=== PATIENT | male | born 1960 | race African-American/Black ===

== ENCOUNTER 2016-10-16 03:09 | Emergency (ER) | payer MEDICAID ==
[~2016-10-16] VITALS: Ht 188 cm; Wt 158.8 kg
[~2016-10-16 03:09] MED LIST: ALLO300T2; ALLO300T2 PO; ENAL-3; ENAL2.5T PO; FLUO-125; FLUO-125 PO; GABA300C8; GABA300C8 PO; INDO50CA82; INDO50CA82 PO; RANI-226; RANI150C11 PO; SIMV-8; SIMV-8 PO
[2016-10-16 03:33] VITALS: BP 150/99
[2016-10-16] MEDS ORDERED: methylPREDNISolone SOD SUCC 125 MG/2 ML VL IM ONE (04:45)
== END 2016-10-16 05:31 | disposition home or self-care (01) ==
LOC: ER 03:13
DX: M10.9 Gout, unspecified (principal); E11.9 Type 2 diabetes mellitus without complications; K21.9 Gastro-esophageal reflux disease without esophagitis; E78.5 Hyperlipidemia, unspecified; I10 Essential (primary) hypertension; Z79.899 Other long term (current) drug therapy
CPT/HCPCS: 82962; 96372; 99283; J2930

== ENCOUNTER 2017-01-14 17:37 | Emergency (ER) | payer MEDICAID ==
[~2017-01-14] VITALS: Ht 190.5 cm; Wt 158.8 kg
[~2017-01-14 17:37] MED LIST changes: +GABA-497; +GABA-497 PO; -GABA300C8; -GABA300C8 PO
[2017-01-14 20:55] LABS: Basophils # (auto) 0.1 uL; Basophils % (auto) 0.5 % (0.0-2.0); CONDITION Y; Eosinophils # (auto) 0.2 uL; Eosinophils % (auto) 2.2 % (0.0-7.0); Hematocrit 41.1 % (41.0-53.0); Hemoglobin 13.6 g/dL (13.5-17.5); Lymphocytes # (auto) 1.8 uL; Lymphocytes % (auto) 16.4 % (10.0-50.0); Mean Corpuscular Hemoglobin 29.1 pg (28.0-32.0); Mean Corpuscular Volume 88.1 fL (80.0-100.0); Mean Platelet Volume 10.8 fL (7.4-10.4); Monocytes # (auto) 1.1 uL; Monocytes % (auto) 10.2 % (0.0-12.0); Neutrophils # (auto) 7.8 uL; Neutrophils % (auto) 70.7 % (37.0-80.0); Platelet Count (auto) 203 10^3/uL (140-450); Red Cell Distribution Width 14.9 % (11.6-16.0)
[2017-01-14 21:03] LABS: INR 0.95 (0.9-1.15); Partial Thromboplastin Time 26.6 sec (22.64-33.71); Prothrombin Time 10.4 sec (9.37-12.3)
[2017-01-14 21:06] LABS: Albumin 3.2 g/dL (3.4-5.0); Alkaline Phosphatase 102 U/L (45-117); Anion Gap 6 (5-15); Aspartate Aminotransferase 36 U/L (15-37); BUN/Creatinine Ratio 8.8; Bilirubin, Total 0.2 mg/dL (0.2-1.0); Blood Urea Nitrogen 10 mg/dL (7-18); Calcium 8.5 mg/dL (8.5-10.1); Carbon Dioxide 28 mmol/L (21-32); Chloride 106 mmol/L (98-107); GFR African American 86 mL/min; GFR Non-African American 71 mL/min; Glucose 94 mg/dL (74-106); Sodium 140 mmol/L (136-145); Total Protein 7.1 g/dL (6.4-8.2)
[2017-01-14] MEDS ORDERED: IOHEXOL 300 MG/ML 100ML BOTTLE IJ ONE (21:13)
[2017-01-14 22:13] LABS: Urine RBC None Seen /hpf (0 - 3)
[2017-01-14 22:19] LABS: B-Type Natriuretic Peptide 3.1 pg/mL (0-100)
[2017-01-14 22:22] LABS: Temperature: 22.2 C (20.0-25.0)
[2017-01-14 22:24] LABS: Urine Bilirubin Negative (Negative); Urine Blood Negative /uL (Negative); Urine Color Yellow (Yellow); Urine Glucose Normal (Normal); Urine Ketone Negative (Negative); Urine Nitrite Negative (Negative); Urine Squamous Epithelial Cell FEW /hpf (<5)
[2017-01-15] MEDS ORDERED: KETOROLAC TROMETH 60MG/2ML VIAL IM ONE
[2017-01-15] MEDS ORDERED: KETOROLAC TROMETH 30 MG/ML 1ML VIAL IV ONE (00:15)
[2017-01-15 00:29] VITALS: BP 142/95
== END 2017-01-15 00:33 | disposition home or self-care (01) ==
LOC: ER 17:40
DX: R60.0 Localized edema (principal); E11.9 Type 2 diabetes mellitus without complications; I10 Essential (primary) hypertension; K21.9 Gastro-esophageal reflux disease without esophagitis; M10.9 Gout, unspecified; E78.5 Hyperlipidemia, unspecified; Z79.899 Other long term (current) drug therapy
CPT/HCPCS: 36415; 71010; 74178; 80053; 81001; 82962; 83880; 84484; 85025; 85610; 85730; 93005; 96374; 99285; J1885; Q9967

== ENCOUNTER 2017-05-13 04:36 | Emergency (ER) | payer MEDICAID ==
[~2017-05-13] VITALS: Ht 190.5 cm; Wt 158.8 kg
[2017-05-13 05:10] VITALS: BP 146/89
== END 2017-05-13 06:21 | disposition home or self-care (01) ==
LOC: ER 04:42
DX: R05 Cough (principal); R50.9 Fever, unspecified; M10.9 Gout, unspecified; I10 Essential (primary) hypertension; K21.9 Gastro-esophageal reflux disease without esophagitis; E11.9 Type 2 diabetes mellitus without complications; E78.5 Hyperlipidemia, unspecified; Z86.718 Personal history of other venous thrombosis and embolism; Z86.73 Personal history of transient ischemic attack (TIA), and cerebral infarction without residual deficits
CPT/HCPCS: 71020; 82962

== ENCOUNTER 2017-06-13 13:09 | Emergency (ER) | payer MEDICAID ==
[~2017-06-13] VITALS: Ht 190.5 cm; Wt 158.8 kg
[2017-06-13 17:51] LABS: Basophils # (auto) 0.1 uL; Basophils % (auto) 0.9 % (0.0-2.0); Eosinophils # (auto) 0.3 uL; Eosinophils % (auto) 2.9 % (0.0-7.0); Hematocrit 39.9 % (41.0-53.0); Hemoglobin 13.1 g/dL (13.5-17.5); Lymphocytes # (auto) 1.3 uL; Lymphocytes % (auto) 13.3 % (10.0-50.0); Mean Corpuscular Hemoglobin 28.6 pg (28.0-32.0); Mean Corpuscular Hgb Conc. 32.9 g/dL (32.0-36.0); Monocytes # (auto) 0.8 uL; Monocytes % (auto) 8.3 % (0.0-12.0); Neutrophils # (auto) 7.6 uL; Neutrophils % (auto) 74.6 % (37.0-80.0); Nucleated Red Blood Cells % 0.3 %; Platelet Count (auto) 159 10^3/uL (140-450); Red Blood Cells 4.59 10^6/uL (4.5-5.90); Red Cell Distribution Width 15.5 % (11.8-14.3); White Blood Cell 10.2 10^3/uL (4.4-10.8)
[2017-06-13] MEDS ORDERED: KETOROLAC TROMETH 60MG/2ML VIAL IM ONE (18:00)
[2017-06-13 18:06] LABS: Albumin 3.2 g/dL (3.4-5.0); BUN/Creatinine Ratio 9.9; Bilirubin, Total 0.2 mg/dL (0.2-1.0); Calcium 8.4 mg/dL (8.5-10.1); Potassium 3.8 mmol/L (3.5-5.1); Total Protein 7.2 g/dL (6.4-8.2)
[2017-06-13 20:00] VITALS: BP 154/82
== END 2017-06-13 20:18 | disposition home or self-care (01) ==
LOC: ER 13:09
DX: M10.022 Idiopathic gout, left elbow (principal); E11.9 Type 2 diabetes mellitus without complications; K21.9 Gastro-esophageal reflux disease without esophagitis; E78.5 Hyperlipidemia, unspecified; I10 Essential (primary) hypertension; Z79.899 Other long term (current) drug therapy; Z86.73 Personal history of transient ischemic attack (TIA), and cerebral infarction without residual deficits
CPT/HCPCS: 36415; 80053; 83880; 84550; 85025; 94761; 96372; 99284; J1885

== ENCOUNTER 2018-07-20 10:38 | Emergency (ER) | payer MEDICAID ==
[~2018-07-20] VITALS: Ht 188 cm; Wt 167.8 kg
[~2018-07-20 10:38] MED LIST changes: -GABA-497; -GABA-497 PO; +GABA300C10; +GABA300C10 PO
[2018-07-20] MEDS ORDERED: KETOROLAC TROMETH 60MG/2ML VIAL IM ONE (13:30)
[2018-07-20 14:54] VITALS: BP 144/95
== END 2018-07-20 14:20 | disposition home or self-care (01) ==
LOC: ER 10:38
DX: M10.9 Gout, unspecified (principal); E11.9 Type 2 diabetes mellitus without complications; K21.9 Gastro-esophageal reflux disease without esophagitis; E78.5 Hyperlipidemia, unspecified; I10 Essential (primary) hypertension; Z86.73 Personal history of transient ischemic attack (TIA), and cerebral infarction without residual deficits
CPT/HCPCS: 36415; 73630; 84550; 96372; 99284; J1885

== ENCOUNTER 2019-12-26 12:00 | Emergency (ER) | payer MEDICAID ==
[~2019-12-26] VITALS: Ht 190.5 cm; Wt 163.3 kg
[~2019-12-26 12:00] MED LIST changes: -ENAL-3; +ENAL10TA2
[2019-12-26 15:51] VITALS: BP 156/106
[2019-12-26] MEDS ORDERED: KETOROLAC TROMETH 60MG/2ML VIAL IM ONE (17:00)
== END 2019-12-26 17:15 | disposition home or self-care (01) ==
LOC: ER 12:00
DX: M10.9 Gout, unspecified (principal); K21.9 Gastro-esophageal reflux disease without esophagitis; E11.9 Type 2 diabetes mellitus without complications; E78.5 Hyperlipidemia, unspecified; I10 Essential (primary) hypertension; Z86.73 Personal history of transient ischemic attack (TIA), and cerebral infarction without residual deficits; Z79.899 Other long term (current) drug therapy
CPT/HCPCS: 76870; 96372; 99284; J1885

== ENCOUNTER 2021-01-23 08:41 | Emergency (ER) | payer MEDICAID ==
[~2021-01-23] VITALS: Ht 190.5 cm; Wt 163.3 kg
[~2021-01-23 08:41] MED LIST changes: +ENAL10TA13; -ENAL10TA2; -ENAL2.5T PO; +ENAL2.5T7 PO
[2021-01-23 09:17] VITALS: BP 155/81
[2021-01-23] MEDS ORDERED: KETOROLAC TROMETH 60MG/2ML VIAL IM ONE (09:45)
[2021-01-23] MEDS ORDERED: methylPREDNISolone SOD SUCC 125 MG/2 ML VL IM ONE (09:45)
== END 2021-01-23 10:00 | disposition home or self-care (01) ==
LOC: ER 08:41
DX: M10.9 Gout, unspecified (principal); E66.01 Morbid (severe) obesity due to excess calories; Z68.42 Body mass index [BMI] 45.0-49.9, adult; I10 Essential (primary) hypertension; E11.9 Type 2 diabetes mellitus without complications; K21.9 Gastro-esophageal reflux disease without esophagitis; E78.5 Hyperlipidemia, unspecified; Z86.73 Personal history of transient ischemic attack (TIA), and cerebral infarction without residual deficits; Z79.899 Other long term (current) drug therapy
CPT/HCPCS: 93005; 96372; 99284; J1885; J2930

== ENCOUNTER 2021-08-02 20:09 | Emergency (ER) | payer MEDICAID ==
[~2021-08-02] VITALS: Ht 190.5 cm; Wt 163.3 kg
[2021-08-02 20:09] VITALS: BP 155/96
[2021-08-02] MEDS ORDERED: KETOROLAC TROMETH 30 MG/ML 1ML VIAL IM ONE (21:45)
== END 2021-08-02 22:17 | disposition home or self-care (01) ==
LOC: ER 20:11
DX: M10.9 Gout, unspecified (principal); E11.9 Type 2 diabetes mellitus without complications; K21.9 Gastro-esophageal reflux disease without esophagitis; E78.5 Hyperlipidemia, unspecified; I10 Essential (primary) hypertension; Z86.73 Personal history of transient ischemic attack (TIA), and cerebral infarction without residual deficits
CPT/HCPCS: 73562; 73630; 96372; 99284; J1885

== ENCOUNTER 2021-12-08 11:25 | Emergency (ER) | payer MEDICAID ==
[~2021-12-08] VITALS: Ht 190.5 cm; Wt 167.8 kg
[2021-12-08] MEDS ORDERED: KETOROLAC TROMETH 60MG/2ML VIAL IM ONE (12:15)
[2021-12-08] MEDS ORDERED: ALL100T PO (12:49)
[2021-12-08] MEDS ORDERED: INDO25CA17 PO (12:49)
[2021-12-08 13:20] VITALS: BP 135/64
== END 2021-12-08 13:33 | disposition home or self-care (01) ==
LOC: ER 11:25
DX: M10.9 Gout, unspecified (principal); I10 Essential (primary) hypertension; E11.9 Type 2 diabetes mellitus without complications; E78.5 Hyperlipidemia, unspecified; K21.9 Gastro-esophageal reflux disease without esophagitis; Z86.73 Personal history of transient ischemic attack (TIA), and cerebral infarction without residual deficits; Z79.899 Other long term (current) drug therapy
CPT/HCPCS: 36415; 84550; 96372; 99283; J1885

== ENCOUNTER 2022-02-05 12:22 | Emergency (ER) | payer MEDICAID ==
[~2022-02-05] VITALS: Ht 190.5 cm; Wt 163.5 kg
[~2022-02-05 12:22] MED LIST changes: +ALL100T PO; +INDO25CA17 PO
[2022-02-05 12:50] VITALS: BP 150/96
[2022-02-05] MEDS ORDERED: methylPREDNISolone SOD SUCC 125 MG/2 ML VL IM ONE (13:00)
[2022-02-05] MEDS ORDERED: KETOROLAC TROMETH 60MG/2ML VIAL IM ONE (13:00)
[2022-02-05] MEDS ORDERED: INDO50CA82 PO (13:05)
[2022-02-05] MEDS ORDERED: COLC1CAP PO ×2 (13:05→13:08)
[2022-02-05] MEDS ORDERED: METH4PAK PO (13:08)
== END 2022-02-05 13:24 | disposition home or self-care (01) ==
LOC: ER 12:22
DX: M10.9 Gout, unspecified (principal); E66.01 Morbid (severe) obesity due to excess calories; I10 Essential (primary) hypertension; E11.9 Type 2 diabetes mellitus without complications; E78.5 Hyperlipidemia, unspecified; K21.9 Gastro-esophageal reflux disease without esophagitis; Z68.42 Body mass index [BMI] 45.0-49.9, adult; Z86.73 Personal history of transient ischemic attack (TIA), and cerebral infarction without residual deficits; Z79.899 Other long term (current) drug therapy
CPT/HCPCS: 93005; 96372; 99284; J1885; J2930

== ENCOUNTER 2022-02-15 08:14 | Emergency (ER) | payer MEDICAID ==
[~2022-02-15] VITALS: Ht 190.5 cm; Wt 168.2 kg
[~2022-02-15 08:14] MED LIST changes: +COLC1CAP PO; +METH4PAK PO
[2022-02-15 09:05] VITALS: BP 136/76
[2022-02-15] MEDS ORDERED: ACET-1158 PO (10:03)
[2022-02-15] MEDS ORDERED: AMOX-277 PO (10:03)
== END 2022-02-15 10:34 | disposition home or self-care (01) ==
LOC: ER 08:14
DX: S91.202A Unspecified open wound of left great toe with damage to nail, initial encounter (principal); K04.7 Periapical abscess without sinus; I10 Essential (primary) hypertension; E78.5 Hyperlipidemia, unspecified; E11.9 Type 2 diabetes mellitus without complications; Z86.73 Personal history of transient ischemic attack (TIA), and cerebral infarction without residual deficits; Z79.899 Other long term (current) drug therapy; X58.XXXA Exposure to other specified factors, initial encounter; Y93.89 Activity, other specified; Y92.89 Other specified places as the place of occurrence of the external cause; Y99.8 Other external cause status

== ENCOUNTER 2022-02-25 03:00 | Emergency (ER) | payer MEDICAID ==
[~2022-02-25] VITALS: Ht 190.5 cm; Wt 168.2 kg
[~2022-02-25 03:00] MED LIST changes: +ACET-1158 PO; +AMOX-277 PO
[2022-02-25] MEDS ORDERED: ACET-1080 PO (07:03)
[2022-02-25] MEDS ORDERED: CLIN300C8 PO (07:03)
[2022-02-25] MEDS ORDERED: KETOROLAC TROMETH 60MG/2ML VIAL IM ONE (07:15)
[2022-02-25 07:49] VITALS: BP 140/92
== END 2022-02-25 07:22 | disposition home or self-care (01) ==
LOC: ER 03:02
DX: K04.7 Periapical abscess without sinus (principal); E11.9 Type 2 diabetes mellitus without complications; K21.9 Gastro-esophageal reflux disease without esophagitis; E78.5 Hyperlipidemia, unspecified; I10 Essential (primary) hypertension; Z86.73 Personal history of transient ischemic attack (TIA), and cerebral infarction without residual deficits
CPT/HCPCS: 96372; 99283; J1885

== ENCOUNTER 2022-04-21 00:39 | Emergency (ER) | payer MEDICAID ==
[~2022-04-21] VITALS: Ht 190.5 cm; Wt 159.0 kg
[~2022-04-21 00:39] MED LIST changes: +ACET-1080 PO; +CLIN300C8 PO
[2022-04-21] MEDS ORDERED: INDO50CA82 PO (02:11)
[2022-04-21] MEDS ORDERED: PRED30TA4 PO (02:11)
[2022-04-21] MEDS ORDERED: KETOROLAC TROMETH 60MG/2ML VIAL IM ONE (02:15)
[2022-04-21] MEDS ORDERED: methylPREDNISolone SOD SUCC 125 MG/2 ML VL IM ONE (02:15)
[2022-04-21] MEDS ORDERED: methylPREDNISolone SOD SUCC 125 MG/2 ML VL ONE (02:17)
[2022-04-21 02:28] VITALS: BP 162/79
== END 2022-04-21 02:29 | disposition home or self-care (01) ==
LOC: ER 00:39
DX: M10.9 Gout, unspecified (principal); I10 Essential (primary) hypertension; E11.9 Type 2 diabetes mellitus without complications; E78.5 Hyperlipidemia, unspecified; K21.9 Gastro-esophageal reflux disease without esophagitis; Z86.73 Personal history of transient ischemic attack (TIA), and cerebral infarction without residual deficits; Z79.899 Other long term (current) drug therapy; Z79.2 Long term (current) use of antibiotics
CPT/HCPCS: 96372; 99284; J1885; J2930

== ENCOUNTER 2022-05-22 14:06 | Emergency (ER) | payer MEDICAID ==
[~2022-05-22] VITALS: Ht 190.5 cm; Wt 163.5 kg
[~2022-05-22 14:06] MED LIST changes: +PRED30TA4 PO
[2022-05-22 14:20] VITALS: BP 143/86
[2022-05-22] MEDS ORDERED: methylPREDNISolone SOD SUCC 125 MG/2 ML VL IM ONE (15:45)
[2022-05-22] MEDS ORDERED: KETOROLAC TROMETH 60MG/2ML VIAL IM ONE (15:45)
[2022-05-22] MEDS ORDERED: PRED20TA2 PO (16:11)
== END 2022-05-22 16:18 | disposition home or self-care (01) ==
LOC: ER 14:25
DX: M10.9 Gout, unspecified (principal); E11.9 Type 2 diabetes mellitus without complications; K21.9 Gastro-esophageal reflux disease without esophagitis; E78.5 Hyperlipidemia, unspecified; I10 Essential (primary) hypertension; Z86.73 Personal history of transient ischemic attack (TIA), and cerebral infarction without residual deficits
CPT/HCPCS: 96372; 99284; J1885; J2930

== ENCOUNTER 2023-02-27 22:04 | Emergency (ER) | payer SELFPAY ==
[~2023-02-27] VITALS: Ht 190.5 cm; Wt 170.0 kg
[~2023-02-27 22:04] MED LIST changes: -ACET-1158 PO; +ACET500T58 PO; -AMOX-277 PO; +AMOX875T4 PO; +CLIN300C70 PO; -CLIN300C8 PO; -ENAL10TA13; +ENAL1TAB42 PO; +ENAL1TAB47; -ENAL2.5T7 PO; +GABA-1250; +GABA-1250 PO; -GABA300C10; -GABA300C10 PO; +INDO-34 PO; -INDO25CA17 PO; +PRED20TA2 PO; -SIMV-8; -SIMV-8 PO; +SIMV20TA20; +SIMV20TA20 PO
[2023-02-28] MEDS ORDERED: MORPHINE SULFATE INJ 2 MG/ml SYRG IM ONE ×2 (01:00→03:00)
[2023-02-28] MEDS ORDERED: DexAMETHasone SOD PHOS 10MG/1ML VIAL INJ IM ONE (01:15)
[2023-02-28] MEDS ORDERED: HYDR-4902 PO (01:19)
[2023-02-28] MEDS ORDERED: INDO50CA82 PO (01:19)
[2023-02-28] MEDS ORDERED: FAMO20TA10 PO (01:26)
[2023-02-28 03:38] VITALS: BP 138/86; PULSE 62; RESP 18
[2023-02-28 04:00] VITALS: O2SAT 96
== END 2023-02-28 05:01 | disposition home or self-care (01) ==
LOC: ER 22:09
DX: M10.9 Gout, unspecified (principal); M17.12 Unilateral primary osteoarthritis, left knee; E11.9 Type 2 diabetes mellitus without complications; K21.9 Gastro-esophageal reflux disease without esophagitis; E78.5 Hyperlipidemia, unspecified; I10 Essential (primary) hypertension; Z76.0 Encounter for issue of repeat prescription; Z86.73 Personal history of transient ischemic attack (TIA), and cerebral infarction without residual deficits; Z79.899 Other long term (current) drug therapy
CPT/HCPCS: 36415; 73080; 73562; 82962; 84550; 96372; 99284; J1100; J2270

== ENCOUNTER 2023-05-02 18:48 | Emergency (ER) | payer MEDICAID ==
[~2023-05-02] VITALS: Ht 190.5 cm; Wt 169.0 kg
[~2023-05-02 18:48] MED LIST changes: +FAMO20TA10 PO; +HYDR-4902 PO
[2023-05-02] MEDS ORDERED: KETOROLAC TROMETH 30 MG/ML 1ML VIAL IM ONE (23:45)
[2023-05-02] MEDS ORDERED: DexAMETHasone SOD PHOS 10MG/1ML VIAL INJ IM ONE (23:45)
[2023-05-03 00:35] VITALS: BP 156/81; PULSE 65; RESP 18
[2023-05-03 00:51] VITALS: O2SAT 98
== END 2023-05-03 01:00 | disposition home or self-care (01) ==
LOC: ER 18:48
DX: M10.071 Idiopathic gout, right ankle and foot (principal); M10.021 Idiopathic gout, right elbow; M10.062 Idiopathic gout, left knee; I10 Essential (primary) hypertension; E11.9 Type 2 diabetes mellitus without complications; K21.9 Gastro-esophageal reflux disease without esophagitis; E78.5 Hyperlipidemia, unspecified; Z86.73 Personal history of transient ischemic attack (TIA), and cerebral infarction without residual deficits; Z79.899 Other long term (current) drug therapy
CPT/HCPCS: 96372; 99284; J1100; J1885

== ENCOUNTER → 2023-06-27 | Outpatient (CLI) | payer MEDICAID ==
[2023-06-27 13:00] LABS: Albumin 4.3 g/dL (3.2-4.8); Bilirubin, Direct 0.2 mg/dL (<0.3); Bilirubin, Total 0.6 mg/dL (0.2-1.0); Total Protein 6.8 g/dL (5.7-8.2)
== END | disposition home or self-care (01) ==
LOC: LAB 11:50
PROVIDERS: ATTEND Podiatrist
DX: B35.1 Tinea unguium (principal)
CPT/HCPCS: 36415; 80076

== ENCOUNTER 2023-10-19 10:36 | Emergency (ER) | payer MEDICAID ==
[~2023-10-19] VITALS: Ht 190.5 cm; Wt 155.9 kg
[~2023-10-19 10:36] MED LIST changes: +CLIN1CAP70 PO; -CLIN300C70 PO
[2023-10-19] MEDS: methylPREDNISolone SOD SUCC 125 MG/2 ML VL IM ONE (12:09)
[2023-10-19] MEDS: KETOROLAC TROMETH 60MG/2ML VIAL IM ONE (12:10)
[2023-10-19] MEDS ORDERED: COLC1CAP PO (12:18)
[2023-10-19 12:30] VITALS: BP 152/99; PULSE 69; RESP 18; TEMP 98.3; O2SAT 97
== END 2023-10-19 12:35 | disposition home or self-care (01) ==
LOC: ER 10:36
DX: M10.061 Idiopathic gout, right knee (principal); M10.071 Idiopathic gout, right ankle and foot; I10 Essential (primary) hypertension; E78.5 Hyperlipidemia, unspecified; K21.9 Gastro-esophageal reflux disease without esophagitis; Z86.73 Personal history of transient ischemic attack (TIA), and cerebral infarction without residual deficits; Z79.899 Other long term (current) drug therapy
CPT/HCPCS: 96372; 99284; J1885; J2930

== ENCOUNTER 2024-04-28 01:45 | Inpatient (IN) | payer MEDICAID ==
[~2024-04-28] VITALS: Ht 188 cm; Wt 145.5 kg
--- NOTE | 2024-04-28 02:10 | ED.PDOC ---
HPI Comments 63-year-old male who came to ER for chest pains. Patient states about an hour ago, while driving home from [place], he started experiencing right-sided chest pains, aching, sharp, radiating to his right shoulder, associated with shortness of breath. States chest pain worsens with movements. Patient also complaining of left elbow pain due to his gout. Chief Complaint: Chest Pain Time Seen by MD: 02:09 Primary Care Provider: PERCY Reviewed Notes: Nurses Notes Allergies: Coded Allergies: NO KNOWN ALLERGIES (Unverified , 11/13/12) Home Meds Active Scripts Colchicine (Colchicine) 0.6 Mg Cap, 0.6 MG PO BID, #30 CAP Prov:ELEANOR CORTEZ 10/19/23 Famotidine (PEPCID TABLET) 20 Mg Tb, 1 TAB PO BID for 10 Days, #20 TAB 5 Refills Prov:NINOSKA REYNAGA CARD CUTTER 02/28/23 Hydrocodone-Acetaminophen (Hydrocodone Bitartrate/AC 5-325 mg) 1 Tab Tab, 1 TAB PO Q6HR, #12 TAB as needed for severe pain Prov:NINOSKA REYNAGA CARD CUTTER 02/28/23 Indomethacin (Indomethacin) 50 Mg Cap, 1 CAP PO TID, #20 CAP 1 Refill as needed for gouty pain Prov:NINOSKA REYNAGA CARD CUTTER 02/28/23 Prednisone (Prednisone) 20 Mg Tab, 60 MG PO DAILY, #18 MG Prov:ELEANOR CORTEZ 05/22/22 Indomethacin (Indomethacin) 50 Mg Cap, 1 CAP PO TID PRN, #30 CAP 0 Refills Prov:TOSHA RITCHIE 04/21/22 Prednisolone Sodium Phosphate (Prednisolone Sodium Phosp) 30 Mg Tab, 30 MG PO DAILY, #3 TAB 0 Refills Prov:TOSHA RITCHIE 04/21/22 Acetaminophen (Tylenol 8 Hour Arthritis) 650 Mg Tab, 650 MG PO TID, #30 TAB Prov:ELEANOR CORTEZ 02/25/22 Clindamycin Hcl (Clindamycin Hcl) 300 Mg Cap, 300 MG PO QID for 7 Days, #28 CAP Prov:ELEANOR CORTEZ 02/25/22 Amoxicillin & Pot Clavulanate (Amoxicillin/Potassium Cla) 875 Mg Tab, 1 TAB PO BID for 7 Days, #14 TAB 0 Refills Prov:TOSHA RITCHIE 02/15/22 Acetaminophen (Acetaminophen) 500 Mg Tab, 500 MG PO QIDP, #30 TAB 0 Refills Prov:TOSHA RITCHIE 02/15/22 Methylprednisolone (Medrol Dosepak) 4 Mg Pilo, 4 MG PO UD, #21 TAB UAD Prov:ELEANOR CORTEZ 02/05/22 Colchicine (Colchicine) 0.6 Mg Cap, 0.6 MG PO TID, #20 CAP Prov:ELEANOR CORTEZ 02/05/22 Indomethacin (Indomethacin) 50 Mg Cap, 1 CAP PO TID, #30 CAP 1 Refill Prov:ELEANOR CORTEZ 02/05/22 Indomethacin (Indocin) 25 Mg Cp, 1 CAP PO BID, #28 CAP Prov:MARK SAHU MD 12/08/21 Allopurinol (ZYLOPRIM TABLET) 100 Mg Tb, 1 TAB PO DAILY, #10 TAB 5 Refills Prov:MARK SAHU MD 12/08/21 Reported Medications Fluoxetine Hcl (Fluoxetine Hcl) 20 Mg Cap, 20 MG PO, CAP 11/18/13 Gabapentin (Gabapentin) 300 Mg Cap, 300 MG PO, CAP 11/18/13 Allopurinol (Allopurinol) 300 Mg Tab, 300 MG PO, TAB 11/18/13 Indomethacin (Indomethacin) 50 Mg Cap, 50 MG PO, CAP 11/18/13 Ranitidine Hcl (Ranitidine Hcl) 150 Mg Cap, 150 MG PO, CAP 11/18/13 Simvastatin (Simvastatin) 20 Mg Tab, 20 MG PO DAILY for 30 Days 11/18/13 Enalapril Maleate (Enalapril Maleate) 2.5 Mg Tab, 10 MG PO DAILY for 30 Days, MG 11/18/13 [Fluoxetine Hcl20 Mg] (Fluoxetine Hcl) 20 MG CAP No Conflict Check, MG 11/13/12 [[id number] Mg] (Gabapentin) 300 MG CAP No Conflict Check, MG 11/13/12 [[id number] Mg] (Allopurinol) 300 MG TAB No Conflict Check, MG 11/13/12 [Ranxowdkqbjc82 Mg] (Indomethacin) 50 MG CAP No Conflict Check, MG 11/13/12 [Ranitidine Eft783 M1] (Ranitidine Hcl) 150 MG TAB No Conflict Check, MG 11/13/12 [Ipvvfkgrhsk45 Mg] (Simvastatin) 20 MG TAB No Conflict Check, MG 11/13/12 [Enalapril Malea10 Mg] (Enalapril Maleate) 10 MG TAB No Conflict Check, MG 11/13/12 Information Source: Patient Mode of Arrival: Ambulatory Severity: Moderate Timing: Minutes Duration: Since onset Prehospital treatment: None Location: Chest (R) Radiation: Shoulder (R) Quality: Sharp, Aching Onset: With Light Exertion Cardiac Risk Factors: HTN PE Risk Factors: None History of: Other, None Modifying Factors: Nothing Associated Signs and Symptoms: SOB Past Medical History PAST MEDICAL HISTORY: CVA, GERD, Gout, High Lipids, HTN Surgical History: Denies all surgeries Family History Family History: Reviewed,noncontributory to illness Social History Smoker: Non-Smoker Alcohol: Denies ETOH Use Drugs: Denies Drug Use Lives In: Home Constitutional: denies: chills, diaphoresis, fatigue, fever, malaise, sweats, weakness, others EENTM: denies: blurred vision, double vision, ear bleeding, ear discharge, ear drainage, ear pain, ear ringing, eye pain, eye redness, hearing loss, mouth pain , mouth swelling, nasal discharge, nose bleeding, nose congestion, nose pain, photophobia, tearing, throat pain, throat swelling, voice changes, others Respiratory: reports: SOB at rest; denies: cough, hemoptysis, orthopnea, shortness of breath, SOB with excertion, stridor, wheezing, others Cardiovascular: reports: chest pain; denies: dizzy spells, diaphoresis, Dyspnea on exertion, edema, irregular heart beat, left arm pain, lightheadedness, palpitations, PND, syncope, others Gastrointestinal: denies: abdomen distended, abdominal pain, blood streaked bowels, constipated, diarrhea, dysphagia, difficulty swallowing, hematemesis, melena, nausea, poor appetite, poor fluid intake, rectal bleeding, rectal pain, vomiting, others Genitourinary: denies: burning, dysuria, flank pain, frequency, hematuria, incontinence, penile discharge, penile sore, pain, testicle pain, testicle swelling, urgency, others Neurological: denies: dizziness, fainting, headache, left sided numbness, left sided weakness, numbness, paresthesia, pre-existing deficit, right sided numbness, right sided weakness, seizure, speech problems, tingling, tremors, weakness, others Musculoskeletal: reports: joint pain (Left elbow); denies: back pain, gout, joint swelling, muscle pain, muscle stiffness, neck pain, others Integumetry: denies: bruises, change in color, change in hair/nails, dryness, laceration, lesions, lumps, rash, wounds, others Allergic/Immunocompromised: denies: Difficulty Healing, Frequent Infections, Hives, Itching, others Hematologic/Lymphatic: denies: anemia, blood clots, easy bleeding, easy bruising, swollen glands, others Endocrine: denies: excessive hunger, excessive sweating, excessive thirst, excessive urination, flushing, intolerance to cold, intolerance to heat, unexplained weight gain, unexplained weight loss, others Psychiatric: denies: anxiety, bipolar disorder, depression, hopeless, panic disorder, schizophrenia, sleepless, suicidal, others Physical Exam General Appearance: No Apparent Distress, Normal HEENT: Normal ENT Inspection, Pharynx Normal, TMs Normal Neck: Full Range of Motion, Non-Tender, Normal, Normal Inspection Respiratory: Chest Non-Tender, Lungs Clear, No Accessory Muscle Use, No Respiratory Distress, Normal Breath Sounds Cardiovascular: No Edema, No JVD, No Murmur, No Gallop, Normal Peripheral Pulses, Regular Rate/Rhythm Breast Exam: Deferred Gastrointestinal: No Organomegaly, Non Tender, No Pulsatile Mass, Normal Bowel Sounds, Soft Genitalia: Deferred Pelvic: Deferred Rectal: Deferred Extremities: No calf tenderness, Normal capillary refill, Normal inspection, Normal range of motion, Non-tender, No pedal edema Musculoskeletal : Apperance: Normal Neurologic: Alert, creative project manager II-XII nml as Tested, No Motor Deficits, Normal Affect, Normal Mood, No Sensory Deficits Cerebellar Function: Normal Reflexes: Normal Skin: Dry, Normal Color, Warm Lymphatic: No Adenopathy Was a procedure done? Was a procedure done?: No CP Differential Dx Differential Diagnosis: Angina, Anxiety / Panic Attack Differential Diagnosis: CHF Differential Diagnosis: Angina, Chest Wall Pain, Costochondritis, Esophageal reflux/spasm, Gastritis, Myocardial Infarction X-Ray, Labs, Meds, VS Vital Signs Date Time Temp Pulse Resp B/P (MAP) Pulse Ox O2 Delivery O2 Flow Rate FiO2 04/28/24 03:09 97 16 120/87 04/28/24 02:44 95 04/28/24 02:30 98.6 97 18 154/86 (108) 96 98.6 04/28/24 02:30 97 16 95 Room Air* 0 21 04/28/24 02:30 97.7 97 16 120/87 (98) 95 97.7 04/28/24 01:49 99 04/28/24 01:48 98.5 99 18 161/93 (115) 96 Lab Test 04/28/24 02:41 04/28/24 01:54 Range/Units Troponin I High Sensitivity 5 6 </=54 ng/L White Blood Count 9.6 4.4-10.8 10^3/uL Red Blood Count 4.83 4.5-5.90 10^6/uL Hemoglobin 14.7 13.5-17.5 g/dL Hematocrit 43.9 41.0-53.0 % Mean Corpuscular Volume 91.0 80.0-100.0 fL Mean Corpuscular Hemoglobin 30.4 28.0-32.0 pg Mean Corpuscular Hemoglobin Concent 33.5 32.0-36.0 g/dL Red Cell Distribution Width 14.2 11.8-14.3 % Platelet Count 230 140-450 10^3/uL Mean Platelet Volume 9.1 6.9-10.8 fL Neutrophils (%) (Auto) 72.3 37.0-80.0 % Lymphocytes (%) (Auto) 16.0 10.0-50.0 % Monocytes (%) (Auto) 7.1 0.0-12.0 % Eosinophils (%) (Auto) 4.0 0.0-7.0 % Basophils (%) (Auto) 0.6 0.0-2.0 % Neutrophils # (Auto) 6.9 1.6-8.6 10 ^3/uL Lymphocytes # (Auto) 1.5 0.4-5.4 10 ^3/uL Monocytes # (Auto) 0.7 0-1.3 10 ^3/uL Eosinophils # (Auto) 0.4 0-0.8 10 ^3/uL Basophils # (Auto) 0.1 0-0.2 10 ^3/uL Nucleated Red Blood Cells 0.1 % Sodium Level 140 136-145 mmol/L Potassium Level 3.7 3.5-5.1 mmol/L Chloride Level 106 98-107 mmol/L Carbon Dioxide Level 26 20-31 mmol/L Anion Gap 8 5-15 Blood Urea Nitrogen 9 9-23 mg/dL Creatinine 0.97 0.700-1.30 mg/dL Glomerular Filtration Rate Calc 88 >90 mL/min BUN/Creatinine Ratio 9.3 L 10.0-20.0 Serum Glucose 121 H 74-106 mg/dL Calcium Level 9.8 8.7-10.4 mg/dL Current Medications Medications (Trade) Dose Ordered Sig/Tip Route Start Time Stop Time Status Last Admin Aspirin 324 mg ONCE ONCE PO 04/28/24 02:00 04/28/24 02:01 DC 04/28/24 02:17 Ondansetron HCl (Zofran) 4 mg ONCE ONCE IV 04/28/24 03:15 04/28/24 03:16 DC 04/28/24 03:08 Morphine Sulfate 4 mg ONCE ONCE IV 04/28/24 03:15 04/28/24 03:16 DC 04/28/24 03:09 Ketorolac Tromethamine (Toradol Injection) 15 mg ONCE ONCE IV 04/28/24 03:15 04/28/24 03:16 DC 04/28/24 03:08 Time of 1ST Reevaluation: 02:06 Reevaluation 1ST: Unchanged Patient Education/Counseling: Diagnosis, Treatment Family Education/Counseling: Diagnosis, Treatment Departure 1 Departure Time of Disposition: 03:24 (Patient presented with chest pain that was concerning for possible STEMI, ACS, PE, Pneumonia, Muscle Strain, COPD, Dissection. Data: 1. I ordered and reviewed the result of at least 3 labs including a CBC, BMP, and Troponin. 2. I independently interpreted the following tests: EKG which shows sinus arrhythmia and Chest X-ray which shows benign chest .Risk:This patient has a high risk of morbidity due to further diagnostic testing or treatment and may suffer from an acute cardiac or respiratory disorder. Workup reveals concern for ACS and patient should be admitted for further workup and possible expert consultation. ) Impression: Primary Impression: Acute chest pain Additional Impression: Gout of left elbow Qualified Codes: M10.022 - Idiopathic gout, left elbow Disposition: ADMITTED INPATIENT Admit to: Med Surg Condition: Serious Critical Care Note Critical Care Time?: Yes Critical care comment: Acute chest pain Authorized and Performed by: South Alonso MD Total critical care time: Approximately 38 minutes Due to a high probability of clinically significant, life threatening deterioration, the patient required my highest level of preparedness to intervene emergently and I personally spent this critical care time directly and personally managing the patient. This critical care time included obtaining a history; examining the patient; pulse oximetry; ordering and review of studies; arranging urgent treatment with development of a management plan; evaluation of patient's response to treatment; frequent reassessment; and, discussions with other providers. This critical care time was performed to assess and manage the high probability of imminent, life-threatening deterioration that could result in multi-organ failure. It was exclusive of separately billable procedures and treating other patients and teaching time. Please see my other sections and the rest of the note for further information on patient assessment and treatment. Stability Stability form required: No Heart Score Heart Score: Heart Score Response (Comments) Value History Slightly Suspicious 0 EKG Normal 0 Age 45-64 1 Risk Factors 1 or 2 risk factors 1 Troponin Normal limit 0 Total 2 I personally scribed for SOUTH ALONSO MD ([email or web address]) on 04/28/24 at 02:10. Electronically submitted by Jeff Aldridge ([email or web address]). SOUTH ALONSO MD Apr 28, 2024 02:10
[2024-04-28] MEDS: ASPirin 81 mg TAB PO ONE (02:17)
[2024-04-28 02:20] LABS: Basophils # (auto) 0.1 10 ^3/uL (0-0.2); Basophils % (auto) 0.6 % (0.0-2.0); Eosinophils # (auto) 0.4 10 ^3/uL (0-0.8); Hematocrit 43.9 % (41.0-53.0); Hemoglobin 14.7 g/dL (13.5-17.5); Lymphocytes # (auto) 1.5 10 ^3/uL (0.4-5.4); Mean Corpuscular Hemoglobin 30.4 pg (28.0-32.0); Mean Corpuscular Hgb Conc. 33.5 g/dL (32.0-36.0); Monocytes # (auto) 0.7 10 ^3/uL (0-1.3); Monocytes % (auto) 7.1 % (0.0-12.0); Neutrophils # (auto) 6.9 10 ^3/uL (1.6-8.6); Neutrophils % (auto) 72.3 % (37.0-80.0); Nucleated Red Blood Cells % 0.1 %; Platelet Count (auto) 230 10^3/uL (140-450); Red Blood Cells 4.83 10^6/uL (4.5-5.90); Red Cell Distribution Width 14.2 % (11.8-14.3); White Blood Cell 9.6 10^3/uL (4.4-10.8)
[2024-04-28 02:30] VITALS: PULSE 97; RESP 16; O2SAT 95
--- NOTE | 2024-04-28 02:30 | DVH ---
XY CHEST TWO VIEWS ROUTINE CLINICAL HISTORY: chest pain COMPARISON: None TECHNIQUE: Frontal and lateral view of the chest was obtained FINDINGS: Lines and Tubes: None Lungs: No focal consolidation. Pleura: No effusion. No pneumothorax. Cardiomediastinal contours: Unremarkable Bones: No acute osseous abnormality. IMPRESSION: No acute cardiopulmonary disease.
[2024-04-28 02:37] LABS: Chloride 106 mmol/L (98-107); Potassium 3.7 mmol/L (3.5-5.1); Sodium 140 mmol/L (136-145)
[2024-04-28 02:38] LABS: Anion Gap 8 (5-15); Carbon Dioxide 26 mmol/L (20-31)
[2024-04-28 02:39] LABS: Calcium 9.8 mg/dL (8.7-10.4)
[2024-04-28 02:43] LABS: BUN/Creatinine Ratio 9.3 (10.0-20.0); Blood Urea Nitrogen 9 mg/dL (9-23); Glucose 121 mg/dL (74-106)
[2024-04-28] MEDS: KETOROLAC TROMETH 30 MG/ML 1ML VIAL IV ONE ×3 (03:08→12:58)
[2024-04-28] MEDS: ONDANSETRON HCL 4 MG/2 ML VIAL IV ONE (03:08)
[2024-04-28] MEDS: MORPHINE SULFATE 4 MG/ML SYR/VIAL IV ONE (03:09)
[2024-04-28] MEDS ORDERED: ACETAMINOPHEN 325 MG TAB PO PRN (04:45)
[2024-04-28] MEDS ORDERED: MORPHINE SULFATE INJ 2 MG/ml SYRG IV PRN (04:45)
[2024-04-28] MEDS ORDERED: NITROGLYCERIN 0.4 MG SL TAB SL PRN (04:45)
[2024-04-28] MEDS ORDERED: ONDANSETRON HCL 4 MG/2 ML VIAL IV PRN (04:45)
[2024-04-28] MEDS ORDERED: HYDROcodone-ACET 5/325MG TAB PO PRN (04:45)
--- NOTE | 2024-04-28 05:25 | DVHHPRES ---
History of Present Illness Resident Creating Document: DAVIDSON RIZZO RESIDENT History of Present Illness This is a 63-year-old male with past medical history of hypertension, hyperlipidemia, type 2 diabetes mellitus, gout presented to the ED with chief complaint of chest pain for 2 hours prior to this admission. Patient states about an hour ago, while driving home from [place], he started experiencing Left- sided chest pain, 8/10, aching, sharp,heaviness in the chest radiating to his Rt shoulder, associated with shortness of breath and without any aggravating and relieved after taking morphine in the ED. Patient also complaining of left elbow pain ,urgency ,hesitancy and incontinence of urine. The patient denies dizziness, diaphoresis, abdominal pain, nausea, vomiting ,any change in bowel and bladder habit, sick contact or any traveling recently. PCP: Dr. Nunn Past Medical History Hypertension, hyperlipidemia, type 2 diabetes mellitus, gout Past Surgical History None Family History None Smoke: No ALCOHOL: none Drugs: None Lives: with Family Review of Systems Constitutional: No: Fever, Chills, Sweats, Weakness, Malaise, Other Eyes: No: Pain, Vision change, Conjunctivae inflammation, Eyelid inflammation, Other, Redness ENT: No: Ear pain, Ear discharge, Nose pain, Nose discharge, Nose congestion, Mouth pain, Mouth swelling, Throat pain, Throat swelling, Other Respiratory: Shortness of breath; No: Cough, Dry, SOB with excertion, Wheezing, Hemoptysis, Pleuritic Pain, Sputum, Wheezing, Other Cardiovascular: Chest Pain; No: Palpitations, Orthopnea, Paroxysmal Noc. Dyspnea, Edema, Lt Headedness, Other Gastrointestinal: No: Nausea, Vomiting, Abdominal Pain, Diarrhea, Constipation, Melena, Hematochezia, Other Genitourinary: No Dysuria, No Frequency, No Incontinence, No Hematuria, No Retention, No Other Musculoskeletal: hand pain; No: other, neck pain, shoulder pain, arm pain, back pain, leg pain, foot pain Skin: No: Rash, Lesions, Jaundice, Bruising, Other Neurological: No: Weakness, Numbness, Incoordination, Change in speech, Confusion, Seizures, Other Allergies: Coded Allergies: NO KNOWN ALLERGIES (Unverified , 11/13/12) Medications Current Medications Medications Dose Ordered Sig/Tip Route Start Time Stop Time Status Last Admin Dose Admin Sodium Chloride 10 ml Q8HR IV 04/28/24 06:00 Acetaminophen 325 mg Q4HP PRN PO 04/28/24 04:45 Acetaminophen/ Hydrocodone Bitart 1 tab Q4HP PRN PO 04/28/24 04:45 Ondansetron HCl 4 mg Q4HP PRN IV 04/28/24 04:45 Nitroglycerin 0.4 mg Q5MINP PRN SL 04/28/24 04:45 Morphine Sulfate 2 mg Q30M PRN IV 04/28/24 04:45 Allopurinol 100 mg DAILY PO 04/28/24 10:00 Enalapril Maleate 10 mg DAILY PO 04/28/24 10:00 Famotidine 20 mg BID PO 04/28/24 10:00 Fluoxetine HCl 20 mg DAILY PO 04/28/24 10:00 Gabapentin 300 mg DAILY PO 04/28/24 10:00 Atorvastatin Calcium 20 mg HS PO 04/28/24 22:00 Exam Vital Signs Vital Signs Date Time Temp Pulse Resp B/P (MAP) Pulse Ox O2 Delivery O2 Flow Rate FiO2 04/28/24 05:06 89 19 124/68 (86) 96 04/28/24 02:30 98.6 98.6 04/28/24 02:30 Room Air* 0 21 Exam Physical examination: General Appearance: Alert, Oriented X3, Cooperative, No acute distress HEENT: Atraumatic, PERRLA, EOMI, Mucous membrane moist/pink Respiratory: Clear to auscultation, Normal air movement Cardiovascular: Regular rate, Normal S1, Normal S2, No murmurs, no chest wall tenderness Abdominal: Normal bowel sounds, Soft, No tenderness, No hepatospenomegaly, No masses Extremities: No clubbing, No cyanosis, No edema, Normal pulses, No tenderness/swelling Skin: No rashes, No breakdown, No significant lesion Neuro: Normal gait, Normal speech, Strength at 5/5 X4 ext, Normal tone, Sensation intact, grossly intact cranial nerves. Psych/Mental Status: Mental status NL, Mood NL Labs/Xrays Labs Test 04/28/24 04:37 04/28/24 01:54 Range/Units Troponin I High Sensitivity 6 </=54 ng/L White Blood Count 9.6 4.4-10.8 10^3/uL Red Blood Count 4.83 4.5-5.90 10^6/uL Hemoglobin 14.7 13.5-17.5 g/dL Hematocrit 43.9 41.0-53.0 % Mean Corpuscular Volume 91.0 80.0-100.0 fL Mean Corpuscular Hemoglobin 30.4 28.0-32.0 pg Mean Corpuscular Hemoglobin Concent 33.5 32.0-36.0 g/dL Red Cell Distribution Width 14.2 11.8-14.3 % Platelet Count 230 140-450 10^3/uL Mean Platelet Volume 9.1 6.9-10.8 fL Neutrophils (%) (Auto) 72.3 37.0-80.0 % Lymphocytes (%) (Auto) 16.0 10.0-50.0 % Monocytes (%) (Auto) 7.1 0.0-12.0 % Eosinophils (%) (Auto) 4.0 0.0-7.0 % Basophils (%) (Auto) 0.6 0.0-2.0 % Neutrophils # (Auto) 6.9 1.6-8.6 10 ^3/uL Lymphocytes # (Auto) 1.5 0.4-5.4 10 ^3/uL Monocytes # (Auto) 0.7 0-1.3 10 ^3/uL Eosinophils # (Auto) 0.4 0-0.8 10 ^3/uL Basophils # (Auto) 0.1 0-0.2 10 ^3/uL Nucleated Red Blood Cells 0.1 % Sodium Level 140 136-145 mmol/L Potassium Level 3.7 3.5-5.1 mmol/L Chloride Level 106 98-107 mmol/L Carbon Dioxide Level 26 20-31 mmol/L Anion Gap 8 5-15 Blood Urea Nitrogen 9 9-23 mg/dL Creatinine 0.97 0.700-1.30 mg/dL Glomerular Filtration Rate Calc 88 >90 mL/min BUN/Creatinine Ratio 9.3 L 10.0-20.0 Serum Glucose 121 H 74-106 mg/dL Calcium Level 9.8 8.7-10.4 mg/dL Assessment/Plan Assessment/Plan Assessment and plan: # Chest pain ruled out ACS - Initial EKG revealed normal study and troponins are unremarkable - Ordered echo # Hyperlipidemia - Continue atorvastatin 20 mg at HS # Hypertensive heart disease - Losartan 25 mg p.o. daily. # History of gout with possible flare up - Colchicine 0.6 mg p.o. b.i.d. - IV Toradol 30 mg t.i.d. - Acetaminophen 650 mg q.6 hours. # History of anxiety/depression - Continue fluoxetine 20 mg daily # Lower urinary tract symptoms, possible BPH - Flomax 0.4 mg p.o. daily. Goal of care discussed with the patient for more than 20 minutes full code Plan of treatment discussed with Dr. Doyle Plan discussed with: Patient, Other My Orders Orders - DAVIDSON RIZZO RESIDENT Procedure Category Date Status Time Admit ADMIT 04/28/24 Transmitted 04:31 Code Status CODE 04/28/24 Transmitted 04:31 2 Gm Sodium Diet DIET 04/28/24 Transmitted Breakfast Sodium Chloride Lock PHA 04/28/24 In Process (Saline Lock Ns) 06:00 Acetaminophen Tablet PHA 04/28/24 In Process (Tylenol Tablet) 04:45 Hydrocodone-Acet PHA 04/28/24 In Process 5/325mg Tab ([place] 04:45 Ondansetron Hcl PHA 04/28/24 In Process (Zofran) 04:45 Complete Blood Count LAB 04/29/24 Verified 04:00 Comprehensive LAB 04/29/24 Verified Metabolic Panel 04:00 Echo 2d Mode Cardiac US 04/28/24 Logged DOP 04:31 Nitroglycerin PHA 04/28/24 In Process Sublingual (Ntrostat 04:45 Morphine Sulfate PHA 04/28/24 In Process Injection 04:45 Oxygen By Nasal RT 04/28/24 Transmitted Cannula 04:31 Stat Ekg For Chest [facility] 04/28/24 In Process Pain 04:31 Notify Md Of Changes [facility] 04/28/24 In Process From Base 04:31 Dispatcher Service Chief For [facility] 04/28/24 In Process 24 Hours 04:31 Emergency Dysrhythmia [facility] 04/28/24 In Process Protocol 04:31 Rhythm Strips Once [facility] 04/28/24 In Process Every Shift 04:31 Allopurinol Tablet PHA 04/28/24 In Process (Zyloprim Tablet) 10:00 Enalapril Tablet PHA 04/28/24 In Process (Vasotec Tablet) 10:00 Famotidine Tablet PHA 04/28/24 In Process (Pepcid Tablet) 10:00 Fluoxetine Capsule PHA 04/28/24 In Process (Prozac Capsule) 10:00 Gabapentin Capsule PHA 04/28/24 In Process (Neurontin Capsule) 10:00 Atorvastatin (Lipitor) PHA 04/28/24 In Process 22:00 Thyroid Stimulating LAB 04/28/24 Logged Hormone 05:22 Hemoglobin A1c LAB 04/28/24 Logged 05:22 Urinalysis LAB 04/28/24 Uncollected 05:22 Vitamin B12 LAB 04/28/24 Logged 05:22 Vitamin D, 25-Hydroxy LAB 04/28/24 Logged 05:22 Glucose Blood PHA 04/28/24 Verified (Accu-Chek Comfort 07:00 Mild Sliding Scale PHA 04/28/24 Verified 07:00 Dextrose 50% Syringe PHA 04/28/24 Verified 05:30 Date of Service: Apr 28, 2024 Billing Provider: LUDMILA DOYLE MD Common Visit Codes: [id number] INP/OBS CARE (HIGH), PROCEDURE ONLY (Cardiac point of care ultrasound 82353) Coding Comment Comment Attending attestation I saw and evaluated the patient. I reviewed the residents note and agree with findings and plan as documented in the residents note. POCUS done today and interpreted by me Cardiac: Technically difficult study, No pericardial effusion, IVC more than 2 cm with less than 50% excursion on inspiration, probably enlarged LV, LA, possible mitral regurgitation likely functional Lung: No B-lines, no pleural effusion Abdomen: Postvoid, bladder with trace residual unmeasurable Atypical angina, likely noncardiac BPH with lower urinary tract symptoms Hypertension Hyperlipidemia Morbid obesity Possible sleep apnea High-risk for CAD Gout with flare up Obtain echo to rule out ischemic cardiomyopathy Nuclear stress test Switch enalapril to losartan Start Flomax Continue with home amlodipine, Lipitor Start colchicine Pain management with Tylenol and Toradol around the clock BiPAP at night, discharged with sleep study as outpatient Rest as per resident note DAVIDSON RIZZO RESIDENT Apr 28, 2024 05:25 LUDMILA DOYLE MD Apr 28, 2024 09:15
[2024-04-28] MEDS ORDERED: DEXTROSE (50%) 50ML SYRG IV PRN (05:30)
[2024-04-28] MEDS: SODIUM CHLOR 0.9% PF (SALINE LOCK) 10ML VIAL/SYR IV SCH (05:34)
[2024-04-28] MEDS: InsuLIN REG 1unit/0.01ml Soln (100units/ml) SC SCH (06:45)
[2024-04-28] MEDS: ACCU-CHEK COMFORT CURVE STRIP VI SCH (06:45)
[2024-04-28 08:07] VITALS: PULSE 68; RESP 16; TEMP 98.4; O2SAT 95
[2024-04-28 08:33] LABS: Urine Bacteria None Seen /hpf (None Seen)
[2024-04-28 09:11] LABS: Urine Blood Negative /uL (Negative); Urine Clarity Clear (Clear); Urine Color Yellow (Yellow); Urine Mucus FEW (None Seen); Urine Protein, UAD Negative (Negative); Urine Specific Gravity 1.022 (1.001-1.035); Urine Urobilinogen 2 mg/dL (Negative); Urine WBC 2 /hpf (0 - 3); Urine pH 5.5 (5.0-9.0)
[2024-04-28] MEDS: COLCHICINE 0.6 MG CAP PO SCH (09:31)
[2024-04-28] MEDS: GABAPENTIN 300 MG CAP PO SCH (09:37)
[2024-04-28] MEDS: FLUoxetine HCL 20 MG CAP PO SCH (09:37)
[2024-04-28] MEDS: LOSARTAN POTASSIUM 25 MG TAB PO SCH (09:39)
[2024-04-28] MEDS ORDERED: ENALAPRIL MALEATE 2.5 MG TAB PO SCH (10:00)
[2024-04-28] MEDS ORDERED: ALLOPURINOL 100 MG TAB PO SCH (10:00)
[2024-04-28] MEDS: FAMOTIDINE 20 MG TAB PO SCH (10:03)
[2024-04-28] MEDS: ACETAMINOPHEN 325 MG TAB PO SCH (12:00)
--- NOTE | 2024-04-28 13:58 | DVHDSRES ---
Discharge Summary Date of Admission Resident Creating Document: DAVIDSON RIZZO RESIDENT Apr 28, 2024 at 04:34 Date of Discharge: Apr 28, 2024 Admitting Diagnosis Chest pain to rule out ACS Labs/Diagnostic Data: Laboratory Results Test 04/28/24 11:55 04/28/24 07:32 04/28/24 04:37 04/28/24 01:54 POC Glucose 116 mg/dl (70-106) Urine Color Yellow (Yellow) Urine Clarity Clear (Clear) Urine pH 5.5 (5.0-9.0) Urine Specific [place] 1.022 (1.001-1.035) Urine Protein Negative (Negative) Urine Ketones Negative (Negative) Urine Blood Negative /uL (Negative) Urine Nitrite Negative (Negative) Urine Bilirubin Negative (Negative) Urine Urobilinogen 2 mg/dL (Negative) Urine Leukocyte Esterase Negative /uL (Negative) Urine RBC <1 /hpf (0 - 3) Urine WBC 2 /hpf (0 - 3) Urine Squamous Epithelial Cells None seen /hpf (<5) Urine Bacteria None seen /hpf (None Seen) Urine Mucus Few (None Seen) Urine Glucose Normal mg/dL (Normal) Troponin I High Sensitivity 6 ng/L (</=54) White Blood Count 9.6 10^3/uL (4.4-10.8) Red Blood Count 4.83 10^6/uL (4.5-5.90) Hemoglobin 14.7 g/dL (13.5-17.5) Hematocrit 43.9 % (41.0-53.0) Mean Corpuscular Volume 91.0 fL (80.0-100.0) Mean Corpuscular Hemoglobin 30.4 pg (28.0-32.0) Mean Corpuscular Hemoglobin Concent 33.5 g/dL (32.0-36.0) Red Cell Distribution Width 14.2 % (11.8-14.3) Platelet Count 230 10^3/uL (140-450) Mean Platelet Volume 9.1 fL (6.9-10.8) Neutrophils (%) (Auto) 72.3 % (37.0-80.0) Lymphocytes (%) (Auto) 16.0 % (10.0-50.0) Monocytes (%) (Auto) 7.1 % (0.0-12.0) Eosinophils (%) (Auto) 4.0 % (0.0-7.0) Basophils (%) (Auto) 0.6 % (0.0-2.0) Neutrophils # (Auto) 6.9 10 ^3/uL (1.6-8.6) Lymphocytes # (Auto) 1.5 10 ^3/uL (0.4-5.4) Monocytes # (Auto) 0.7 10 ^3/uL (0-1.3) Eosinophils # (Auto) 0.4 10 ^3/uL (0-0.8) Basophils # (Auto) 0.1 10 ^3/uL (0-0.2) Nucleated Red Blood Cells 0.1 % Sodium Level 140 mmol/L (136-145) Potassium Level 3.7 mmol/L (3.5-5.1) Chloride Level 106 mmol/L (98-107) Carbon Dioxide Level 26 mmol/L (20-31) Anion Gap 8 (5-15) Blood Urea Nitrogen 9 mg/dL (9-23) Creatinine 0.97 mg/dL (0.700-1.30) Glomerular Filtration Rate Calc 88 mL/min (>90) BUN/Creatinine Ratio 9.3 (10.0-20.0) Serum Glucose 121 mg/dL (74-106) Hemoglobin A1c 5.8 % A1C (<5.7) Calcium Level 9.8 mg/dL (8.7-10.4) Vitamin B12 Level 277 pg/mL (211-911) Vitamin D 25-Hydroxy 42.7 ng/mL (30.0-100) Thyroid Stimulating Hormone (TSH) 1.99 uIU/mL (0.55-4.78) Other Laboratory Tests 04/28/24 01:54 Brief Hx & Hospital Course: This is a 63-year-old male with a past medical history of hypertension, hyperlipidemia, type 2 diabetes mellitus, and gout who presented to the ED with the chief complaint of chest pain for 2 hours prior to this admission. The patient states that about an hour ago, while driving home from [place], he started experiencing left-sided chest pain, 8/10, aching, sharp, and heaviness in the chest radiating to his right shoulder, associated with shortness of breath. The pain was relieved after taking morphine in the ED. The patient also complained of left elbow pain, urgency, hesitancy, and incontinence of urine. The patient denies dizziness, diaphoresis, abdominal pain, nausea, vomiting, any change in bowel and bladder habits, sick contacts, or recent travel. PCP: Dr. Nunn Past Medical History: Hypertension, hyperlipidemia, pre-diabetes, gout Past Surgical History: None Family History: None Social History: The patient lives with family, is an ex-smoker with a 5 pack- year history, does not drink alcohol, and denies drug use Home Medication: None Allergic History: Noncontributory The patient was admitted for evaluation of chest pain. On physical examination, there was tenderness on the right side of the chest radiating to the right shoulder, otherwise nonsignificant. Lab studies were significant for raised HbA1c at 5.8, otherwise within normal limits. Serial troponin levels were within normal limits, and EKG showed normal sinus rhythm with no significant ST or T- wave changes. Chest X-ray show reticulonodular infiltration. During hospitalization, the patient was put on the ACS protocol, including atorvastatin, losartan, nitroglycerin, and aspirin, and continued home medications. The patient also had a left elbow gout flare-up, for which colchicine was given. On 04/28/2024, the patient was sitting comfortably. The patients chest pain had improved, and he had no active complaints. The discharge plan was discussed with the patient, and he was recommended to follow up with the PCP within 1 week after discharge and with Cardiology on an outpatient basis. Operations or Procedures [place] [address] Ph: [phone] DIAGNOSTIC IMAGING Diagnostic Imaging Report : [id number] Signed PATIENT: MEJIA CABRERA OACCT: [id number] UNIT: [id number] : 1960 LOC: ER ROOM / BED: / AGE / SEX: 63 / M ADM STATUS: REG ER SERVICE [id number] ORDERING PHYSICIAN: SOUTH CARCAMO MD PROCEDURE(s): CXR2 - CHEST TWO VIEWS ROUTINE REASON: chest pain ORDER NUMBER(s): [id number], ACCESSION NUMBER(s): [id number] CHEST TWO VIEWS ROUTINE CLINICAL HISTORY: chest pain COMPARISON: None TECHNIQUE: Frontal and lateral view of the chest was obtained FINDINGS: Lines and Tubes: None Lungs: No focal consolidation. Pleura: No effusion. No pneumothorax. Cardiomediastinal contours: Unremarkable Bones: No acute osseous abnormality. IMPRESSION: No acute cardiopulmonary disease. ATED BY: GUNNAR GUTIERREZ MD DICTATED DATE/TIME: 04/28/24227 SIGNED BY: GUNNAR GUTIERREZ MD SIGNED DATE/TIME: 04/28/24227 CC: Condition at Discharge: Good Final Diagnosis/Problems List chest pain likely due to costochondritis Prediabetes Gouty arthritis Ruled out ACS Hyperlipidemia Hypertension Hypertensive heart Disease History of anxiety and depression Ruled out UTI BPH Discharge Disposition: Home Discharge Instruct/Medications Diet: Cardiac 2g Na,low cholest Activity: No Restrictions, As Tolerated Follow Up/Referral: follow up with the PCP within one after discharge follow with the cardilogy within one week after discharge Medications: continue home medication Discharge Statement: "Patient was advised to return to the ER or call 911 if any headaches, dizziness, shortness of breath, chest pain, abdominal pain, bleeding, fevers, or worsening of medical condition. Patient was counseled about treatment plan, medications, possible side effects, patientverbalized understanding. All questions were answered to the best of my ability. This discharge took greater then 30 minutes in planning, reviewing documentation, counseling the patient, and discussing with other team members." ASSESSMENT ASSESSMENT Assessment chest pain likely due to costochondritis Date of Service: Apr 28, 2024 Billing Provider: ALFRED RAM MD Common Visit Codes: 54282-THT/OBS DISCH DAY >30min HOWARDYVONNEIBRAHIMA RESDIENT Apr 28, 2024 13:58 ALFRED RAM MD Apr 29, 2024 16:31
[2024-04-28] MEDS: KETOROLAC TROMETH 30 MG/ML 1ML VIAL IV SCH (14:00)
--- NOTE | 2024-04-28 14:04 | DVHSR ---
APPROVED REPORT EXAM: LIMITED Two-dimensional and M-mode echocardiogram with Doppler and color Doppler. Blood Pressure: 136/69 mmHg INDICATION Chest Pain RISK FACTORS Obesity: Height: 6' 2", Weight: 320 DIMENSIONS LVDd5.2 (3.8-5.7cm)LA (2D)4.0 (1.9-4.0cm)Aortic Root3.6 (2.0-3.7cm) LVDs3.7 (2.5-4.0cm)LA (MM) (1.9-4.0cm)Aortic Cusp Exc1.5 (1.5-2.0cm) EF (%) 55.0 (55-70%)Rt. Atrium4.0 (1.9-4.0cm)Asc. Aorta cm IVSd1.2 (0.7-1.1cm)RV (D) (1.8-2.4cm) PWd1.2 (0.7-1.1cm) Mitral Valve MitralMitral Stenosis E wave0.90m/sMV Mean GR.mmHg A wave0.70m/sMV Peak GR.mmHg E/A ratio1.32D MVAcm2 Aortic Valve Aortic ValveAortic Stenosis V11.00m/Rosmery Mean GR.7mmHg V21.80m/Rosmery Peak GR.14mmHg LVOT Diameter2.1 (1.8-2.4cm)Doppler AVA1.92cm2 Other Information Quality : Technically LimitedRhythm : Technically limited study due to body habitus. Conclusion Normal left ventricular size and dimension. Normal left ventricular systolic function. Estimated ej ection fraction 55%. There is a grade 2 diastolic dysfunction. Normal right ventricular size and dimension. Normal right ventricular systolic function. Normal biatrial size and dimension. Mild aortic valve sclerosis. Normal mitral valve structure and function. Normal tricuspid valve structure and function. The pulmonary valve is grossly normal. No pericardial effusion.
[2024-04-28 14:51] VITALS: BP 134/86; PULSE 62; RESP 12; O2SAT 94
[2024-04-28] MEDS ORDERED: TAMSULOSIN HYDROCHLORIDE 0.4 MG CAP PO SCH (18:00)
--- NOTE | 2024-04-28 19:21 | ECG ---
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
--- NOTE | 2024-04-28 19:21 | ECG ---
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
[2024-04-28] MEDS ORDERED: ATORVASTATIN 20 MG TAB PO SCH (22:00)
--- NOTE | 2024-04-30 13:51 | ECG ---
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
== END 2024-04-28 14:58 | disposition home or self-care (01) | DRG 203 ==
LOC: ER 01:45 → TELE 04:34 → UNDODEPER 14:45
PROVIDERS: ADMIT Internal Medicine; ATTEND Internal Medicine
DX: M94.0 Chondrocostal junction syndrome [Tietze] (principal); I11.9 Hypertensive heart disease without heart failure; E66.01 Morbid (severe) obesity due to excess calories; K21.9 Gastro-esophageal reflux disease without esophagitis; M10.022 Idiopathic gout, left elbow; N40.1 Benign prostatic hyperplasia with lower urinary tract symptoms; E78.5 Hyperlipidemia, unspecified; Z86.73 Personal history of transient ischemic attack (TIA), and cerebral infarction without residual deficits; Z68.41 Body mass index [BMI] 40.0-44.9, adult; Z79.899 Other long term (current) drug therapy; R73.03 Prediabetes
CPT/HCPCS: 36415; 71046; 80048; 81001; 82306; 82607; 82962; 83036; 84443; 84484; 85025; 93005; 93306; 96374; 96375; 99291; G0378; J1885; J2405

== ENCOUNTER 2024-12-09 10:23 | Emergency (ER) | payer MEDICAID ==
[~2024-12-09] VITALS: Ht 190.5 cm; Wt 162.0 kg
--- NOTE | 2024-12-09 11:09 | ED.PDOC ---
GI ASSESSMENT HPI Comments 64 y.o male with PMHx of HTN, aorta, leaky calve ,GERD, gout, hyperlipidemia, and CVA, presents to the ED for a chief complaint of nausea and vomiting that started yesterday with new onset left sided chest pain x today. Patient denies eating anything of his norm recently but notes he has vomiting described as food particle output this morning. Patient describes chest pain as a squeezing pain that is non radiating and mainly comes on when he vomits and has no alleviating or precipitating factors. No chest pain with walking or walking up stairs. No diaphoresis. No numbness or weakness. No trauma. No rash. No other pain or symptoms. He denies any substance, alcohol or tobacco use. Chief Complaint: Nausea/Vomiting Time Seen by MD: 10:32 Primary Care Provider: BERNARDA Reviewed Notes: Nurses Notes, Medications, Allergies Allergies: Coded Allergies: NO KNOWN ALLERGIES (Unverified , 11/13/12) Home Meds Active Scripts Ondansetron Odt 4MG Tab (ZOFRAN PO) 4 Mg Tb, 4 MG PO Q8HPRN PRN for 5 Days, #10 TAB ODT TAB-DISSOLVE IN MOUTH, THEN SWALLOW Prov:NAMRATA ADAMOSN MD 12/09/24 Colchicine (Colchicine) 0.6 Mg Cap, 0.6 MG PO BID, #30 CAP Prov:ELEANOR CORTEZ 10/19/23 Famotidine (PEPCID TABLET) 20 Mg Tb, 1 TAB PO BID for 10 Days, #20 TAB 5 Refills Prov:NINOSKA REYNAGA Q [employer] UNDERWRITER 02/28/23 Hydrocodone-Acetaminophen (Hydrocodone Bitartrate/AC 5-325 mg) 1 Tab Tab, 1 TAB PO Q6HR, #12 TAB as needed for severe pain Prov:NINOSKA REYNAGA [employer] UNDERWRITER 02/28/23 Indomethacin (Indomethacin) 50 Mg Cap, 1 CAP PO TID, #20 CAP 1 Refill as needed for gouty pain Prov:NINOSKA REYNAGA Q [employer] UNDERWRITER 02/28/23 Prednisone (Prednisone) 20 Mg Tab, 60 MG PO DAILY, #18 MG Prov:ELEANOR CORTEZ 05/22/22 Indomethacin (Indomethacin) 50 Mg Cap, 1 CAP PO TID PRN, #30 CAP 0 Refills Prov:TOSHA RITCHIE 04/21/22 Prednisolone Sodium Phosphate (Prednisolone Sodium Phosp) 30 Mg Tab, 30 MG PO DAILY, #3 TAB 0 Refills Prov:TOSHA RITCHIE 04/21/22 Acetaminophen (Tylenol 8 Hour Arthritis) 650 Mg Tab, 650 MG PO TID, #30 TAB Prov:ELEANOR CORTEZ 02/25/22 Clindamycin Hcl (Clindamycin Hcl) 300 Mg Cap, 300 MG PO QID for 7 Days, #28 CAP Prov:ELEANOR CORTEZ 02/25/22 Amoxicillin & Pot Clavulanate (Amoxicillin/Potassium Cla) 875 Mg Tab, 1 TAB PO BID for 7 Days, #14 TAB 0 Refills Prov:TOSHA RITCHIE 02/15/22 Acetaminophen (Acetaminophen) 500 Mg Tab, 500 MG PO QIDP, #30 TAB 0 Refills Prov:TOSHA RITCHIE 02/15/22 Methylprednisolone (Medrol Dosepak) 4 Mg Pilo, 4 MG PO UD, #21 TAB UAD Prov:ELEANOR CORTEZ 02/05/22 Colchicine (Colchicine) 0.6 Mg Cap, 0.6 MG PO TID, #20 CAP Prov:ELEANOR CORTEZ 02/05/22 Indomethacin (Indomethacin) 50 Mg Cap, 1 CAP PO TID, #30 CAP 1 Refill Prov:ELEANOR CORTEZ 02/05/22 Indomethacin (Indocin) 25 Mg Cp, 1 CAP PO BID, #28 CAP Prov:MARK SAHU MD 12/08/21 Allopurinol (ZYLOPRIM TABLET) 100 Mg Tb, 1 TAB PO DAILY, #10 TAB 5 Refills Prov:MARK SAHU MD 12/08/21 Reported Medications Fluoxetine Hcl (Fluoxetine Hcl) 20 Mg Cap, 20 MG PO, CAP 11/18/13 Gabapentin (Gabapentin) 300 Mg Cap, 300 MG PO, CAP 11/18/13 Allopurinol (Allopurinol) 300 Mg Tab, 300 MG PO, TAB 11/18/13 Indomethacin (Indomethacin) 50 Mg Cap, 50 MG PO, CAP 11/18/13 Ranitidine Hcl (Ranitidine Hcl) 150 Mg Cap, 150 MG PO, CAP 11/18/13 Simvastatin (Simvastatin) 20 Mg Tab, 20 MG PO DAILY for 30 Days 11/18/13 Enalapril Maleate (Enalapril Maleate) 2.5 Mg Tab, 10 MG PO DAILY for 30 Days, MG 11/18/13 [Fluoxetine Hcl20 Mg] (Fluoxetine Hcl) 20 MG CAP No Conflict Check, MG 11/13/12 [Rrgbfvvekc103 Mg] (Gabapentin) 300 MG CAP No Conflict Check, MG 11/13/12 [Odbpcruhwnr215 Mg] (Allopurinol) 300 MG TAB No Conflict Check, MG 11/13/12 [Snlvsgxervvg09 Mg] (Indomethacin) 50 MG CAP No Conflict Check, MG 11/13/12 [Ranitidine Cai788 M1] (Ranitidine Hcl) 150 MG TAB No Conflict Check, MG 11/13/12 [Afdilubgmtw48 Mg] (Simvastatin) 20 MG TAB No Conflict Check, MG 11/13/12 [Enalapril Malea10 Mg] (Enalapril Maleate) 10 MG TAB No Conflict Check, MG 11/13/12 Information Source: Patient Mode of Arrival: Ambulatory Timing: Days (1) Duration: Since onset Quality: Other Vomitus: Food Particles, Hard Stool: Normal Severity: Moderate Modifying Factors: Nothing Associated sign and symptoms: Nausea, Vomiting Past Medical History PAST MEDICAL HISTORY: CVA, GERD, Gout, High Lipids, HTN Surgical History (Other): colon Family History Family History: Reviewed,noncontributory to illness Social History Smoker: Non-Smoker Alcohol: Denies ETOH Use Drugs: Denies Drug Use Lives In: Home Constitutional: denies: chills, diaphoresis, fatigue, fever, malaise, sweats, weakness, others EENTM: denies: blurred vision, double vision, ear bleeding, ear discharge, ear drainage, ear pain, ear ringing, eye pain, eye redness, hearing loss, mouth pain, mouth swelling, nasal discharge, nose bleeding, nose congestion, nose p ain, photophobia, tearing, throat pain, throat swelling, voice changes, others Respiratory: denies: cough, hemoptysis, orthopnea, SOB at rest, shortness of breath, SOB with excertion, stridor, wheezing, others Cardiovascular: reports: chest pain; denies: dizzy spells, diaphoresis, Dyspnea on exertion, edema, irregular heart beat, left arm pain, lightheadedness, palpitations, PND, syncope, others Gastrointestinal: reports: nausea, vomiting; denies: abdomen distended, abdominal pain, blood streaked bowels, constipated, diarrhea, dysphagia, difficulty swallowing, hematemesis, melena, poor appetite, poor fluid intake, rectal bleeding, rectal pain, others Genitourinary: denies: burning, dysuria, flank pain, frequency, hematuria, incontinence, penile discharge, penile sore, pain, testicle pain, testicle swelling, urgency, others Neurological: denies: dizziness, fainting, headache, left sided numbness, left sided weakness, numbness, paresthesia, pre-existing deficit, right sided numbness, right sided weakness, seizure, speech problems, tingling, tremors, weakness, others Musculoskeletal: denies: back pain, gout, joint pain, joint swelling, muscle pain, muscle stiffness, neck pain, others Integumetry: denies: bruises, change in color, change in hair/nails, dryness, laceration, lesions, lumps, rash, wounds, others Allergic/Immunocompromised: denies: Difficulty Healing, Frequent Infections, Hives, Itching, others Hematologic/Lymphatic: denies: anemia, blood clots, easy bleeding, easy bruising, swollen glands, others Endocrine: denies: excessive hunger, excessive sweating, excessive thirst, excessive urination, flushing, intolerance to cold, intolerance to heat, unexplained weight gain, unexplained weight loss, others Psychiatric: denies: anxiety, bipolar disorder, depression, hopeless, panic disorder, schizophrenia, sleepless, suicidal, others Physical Exam General Appearance: No Apparent Distress, Normal HEENT: Normal ENT Inspection, Pharynx Normal, TMs Normal Neck: Full Range of Motion, Non-Tender, Normal, Normal Inspection Respiratory: Chest Non-Tender, Lungs Clear, No Accessory Muscle Use, No Respiratory Distress, Normal Breath Sounds Cardiovascular: No Edema, No JVD, No Murmur, No Gallop, Normal Peripheral Pulses, Regular Rate/Rhythm Breast Exam: Deferred Gastrointestinal: No Organomegaly, Non Tender, No Pulsatile Mass, Normal Bowel Sounds, Soft Genitalia: Deferred Pelvic: Deferred Rectal: Deferred Extremities: No calf tenderness, Normal capillary refill, Normal inspection, Normal range of motion, Non-tender, No pedal edema Musculoskeletal : Apperance: Normal Neurologic: Alert, medical records specialist II-XII nml as Tested, No Motor Deficits, Normal Affect, Normal Mood, No Sensory Deficits Cerebellar Function: Normal Reflexes: Normal Skin: Dry, Normal Color, Warm Lymphatic: No Adenopathy Was a procedure done? Was a procedure done?: No GI differential Dx Differential Diagnosis: Angina/VA, Gastroenteritis, Dehydration, Electrolyte Imbalance, Food Poisoning, Bacterial, Viral X-Ray, Labs, Meds, VS Vital Signs Date Time Temp Pulse Resp B/P (MAP) Pulse Ox O2 Delivery O2 Flow Rate FiO2 12/09/24 11:23 98.7 73 16 170/97 (121) 98 98.7 12/09/24 11:23 73 18 98 Room Air* 0 21 12/09/24 10:30 78 12/09/24 10:25 98.3 78 18 138/96 (110) 95 98.3 Lab Test 12/09/24 11:50 12/09/24 10:59 12/09/24 10:31 Range/Units Troponin I High Sensitivity 8 9 </=54 ng/L White Blood Count 10.1 4.4-10.8 10^3/uL Red Blood Count 5.28 4.5-5.90 10^6/uL Hemoglobin 16.0 13.5-17.5 g/dL Hematocrit 47.5 41.0-53.0 % Mean Corpuscular Volume 90.0 80.0-100.0 fL Mean Corpuscular Hemoglobin 30.3 28.0-32.0 pg Mean Corpuscular Hemoglobin Concent 33.6 32.0-36.0 g/dL Red Cell Distribution Width 14.2 11.8-14.3 % Platelet Count 177 140-450 10^3/uL Mean Platelet Volume 9.2 6.9-10.8 fL Neutrophils (%) (Auto) 79.4 37.0-80.0 % Lymphocytes (%) (Auto) 10.4 10.0-50.0 % Monocytes (%) (Auto) 9.0 0.0-12.0 % Eosinophils (%) (Auto) 0.9 0.0-7.0 % Basophils (%) (Auto) 0.3 0.0-2.0 % Neutrophils # (Auto) 8.0 1.6-8.6 10 ^3/uL Lymphocytes # (Auto) 1.0 0.4-5.4 10 ^3/uL Monocytes # (Auto) 0.9 0-1.3 10 ^3/uL Eosinophils # (Auto) 0.1 0-0.8 10 ^3/uL Basophils # (Auto) 0 0-0.2 10 ^3/uL Nucleated Red Blood Cells 0.1 % Sodium Level 145 136-145 mmol/L Potassium Level 3.8 3.5-5.1 mmol/L Chloride Level 106 98-107 mmol/L Carbon Dioxide Level 29 20-31 mmol/L Anion Gap 10 5-15 Blood Urea Nitrogen 9 9-23 mg/dL Creatinine 1.06 0.700-1.30 mg/dL Glomerular Filtration Rate Calc 79 >90 mL/min BUN/Creatinine Ratio 8.5 L 10.0-20.0 Serum Glucose 90 74-106 mg/dL Calcium Level 9.7 8.7-10.4 mg/dL B-Type Natriuretic Peptide 15.84 0-100 pg/mL Lipase 30 12-53 U/L Urine Color Yellow Yellow Urine Clarity Clear Clear Urine pH 7.0 5.0-9.0 Urine Specific Golden 1.023 1.001-1.035 Urine Protein Trace H Negative Urine Ketones Negative Negative Urine Blood Negative Negative /uL Urine Nitrite Negative Negative Urine Bilirubin Negative Negative Urine Urobilinogen Normal Negative mg/dL Urine Leukocyte Esterase Negative Negative /uL Urine RBC 1 0 - 3 /hpf Urine Microscopic WBC 1 0-3 /HPF Urine Squamous Epithelial Cells Few <5 /hpf Urine Bacteria None seen None Seen /hpf Urine Mucus Few None Seen Urine Glucose Normal Normal mg/dL Current Medications Medications (Trade) Dose Ordered Sig/Tip Route Start Time Stop Time Status Last Admin Sodium Chloride 1,000 ml @ 1,000 mls/hr Q1H ONCE IV 12/09/24 11:00 12/09/24 11:59 DC 12/09/24 12:39 Ondansetron HCl (Zofran) 4 mg O ONCE IV 12/09/24 11:00 12/09/24 11:01 DC 12/09/24 12:39 CHEST XRAY: 1 view(s) was obtained HISTORY: chest pain COMPARISON: 04/28/2024. FINDINGS: Lungs are clear. Cardiomediastinal silhouette is normal in size. Upper abdomen and osseus structures are unremarkable. IMPRESSION: 1. Unremarkable examination X-Ray, Labs, Meds, VS Comment Patient presents with acute onset of nausea/vomiting without clear etiology from evaluation today and may represent acute viral infection amongst an otherwise broad differential. Today with no signs of dehydration or LEONA. Trop negx2 and EKG without e/o acute ischemia, doubt ACS. Symptomatic control achieved in the emergency department with Fluids and Zofran and patient able to tolerate PO. Discussed symptomatic management and supportive care. Patient to follow-up with primary care provider within the next week for reevaluation. Reviewed return precautions including, but not limited to worsening of symptoms, fever > 100.4, PO intolerance, worsening abdominal pain. Patient is in agreement with the plan and all questions answered. Considered cannabis hyperemesis syndrome, gastroparesis, DKA, small bowel obstruction, pancreatitis, atypical ACS/VA, appendicitis, biliary etiology, or diverticulitis, but consider these to be less likely based on history/physical/evaluation as above. Images Reviewed?: Images reviewed and evaluated by me Time of 1ST Reevaluation: 11:01 Reevaluation 1ST: Unchanged Time of 2ND Reevaluation: 13:22 Reevaluation 2ND: Resolved (Patient in no distress, states he feels significantly improved after his fluids and Zofran, tolerating p.o., requesting to be discharged.) Patient Education/Counseling: Diagnosis, Treatment, Prognosis Family Education/Counseling: No Family Present SEPSIS Sepsis Screen Date sepsis recognized/suspect: Dec 09, 2024 Time Sepsis recognized/suspect: 1024 Recent Procedure: No On Antibiotic Therapy: No Respiratory Rate >20: No Heart Rate >90: No Temp<36 C (96.8 F) or >38.3 C: No SBP <90 or MAP <65 mmHG: No New Acute Mental Status Change: No Is the patient on CPAP, BIPAP,: No Physician Orders Electrocardigram (12/09/24 10:33) Chest Xray 1 View (12/09/24 10:51) Vital Signs Date Time Temp Pulse Resp B/P (MAP) Pulse Ox O2 Delivery O2 Flow Rate FiO2 12/09/24 11:23 98.7 73 16 170/97 (121) 98 98.7 12/09/24 11:23 73 18 98 Room Air* 0 21 12/09/24 10:30 78 12/09/24 10:25 98.3 78 18 138/96 (110) 95 98.3 Laboratory Tests Test 12/09/24 10:59 White Blood Count 10.1 10^3/uL (4.4-10.8) Medications Medications Dose Ordered Sig/Tip Route Start Time Stop Time Status Last Admin Dose Admin Ondansetron HCl 4 mg O ONCE IV 12/09/24 11:00 12/09/24 11:01 DC 12/09/24 12:39 Sodium Chloride 1,000 ml @ 1,000 mls/hr Q1H ONCE IV 12/09/24 11:00 12/09/24 11:59 DC 12/09/24 12:39 Departure 1 Departure Time of Disposition: 13:40 Impression: Primary Impression: Nausea & vomiting Additional Impression: Viral illness Disposition: HOME / SELF CARE / HOMELESS Condition: Stable e-Prescriptions Ondansetron Odt 4MG Tab (ZOFRAN PO) 4 Mg Tb 4 MG PO Q8HPRN PRN for 5 Days, #10 TAB ODT TAB-DISSOLVE IN MOUTH, THEN SWALLOW Prov: NAMRATA ADAMSON MD 12/09/24 Discharged With: Self Critical Care Note Critical Care Time?: Yes (30 min-critical care time only) Stability Stability form required: No Heart Score Heart Score: Heart Score Response (Comments) Value History Slightly Suspicious 0 EKG Normal 0 Age 45-64 1 Risk Factors No known risk factors 0 Troponin N/A 0 Total 1 I personally scribed for NAMRATA ADAMSON MD ([email or web address]) on 12/09/24 at 11:09. Electronically submitted by Roxy Pierce ([facility]). I personally scribed for NAMRATA ADAMSON MD ([email or web address]) on 12/09/24 at 11:36. Electronically submitted by Roxy Pierce ([facility]). NAMRATA ADAMSON MD Dec 09, 2024 11:09
[2024-12-09 11:19] LABS: Basophils # (auto) 0 10 ^3/uL (0-0.2); Basophils % (auto) 0.3 % (0.0-2.0); Eosinophils # (auto) 0.1 10 ^3/uL (0-0.8); Eosinophils % (auto) 0.9 % (0.0-7.0); Hematocrit 47.5 % (41.0-53.0); Lymphocytes % (auto) 10.4 % (10.0-50.0); Mean Corpuscular Hemoglobin 30.3 pg (28.0-32.0); Mean Corpuscular Hgb Conc. 33.6 g/dL (32.0-36.0); Monocytes # (auto) 0.9 10 ^3/uL (0-1.3); Neutrophils % (auto) 79.4 % (37.0-80.0); Nucleated Red Blood Cells % 0.1 %; Platelet Count (auto) 177 10^3/uL (140-450); Red Blood Cells 5.28 10^6/uL (4.5-5.90); Red Cell Distribution Width 14.2 % (11.8-14.3); White Blood Cell 10.1 10^3/uL (4.4-10.8)
--- NOTE | 2024-12-09 11:21 | DVH ---
CHEST XRAY: 1 view(s) was obtained HISTORY: chest pain COMPARISON: 04/28/2024. FINDINGS: Lungs are clear. Cardiomediastinal silhouette is normal in size. Upper abdomen and osseus structures are unremarkable. IMPRESSION: 1. Unremarkable examination
[2024-12-09 11:23] VITALS: BP 170/97; PULSE 73; RESP 18; TEMP 98.7; O2SAT 98
[2024-12-09 11:28] LABS: Chloride 106 mmol/L (98-107); Potassium 3.8 mmol/L (3.5-5.1)
[2024-12-09 11:29] LABS: Anion Gap 10 (5-15); Calcium 9.7 mg/dL (8.7-10.4); Carbon Dioxide 29 mmol/L (20-31); Sodium 145 mmol/L (136-145)
[2024-12-09 11:34] LABS: BUN/Creatinine Ratio 8.5 (10.0-20.0); Blood Urea Nitrogen 9 mg/dL (9-23); Glucose 90 mg/dL (74-106); Lipase 30 U/L (12-53)
[2024-12-09 12:32] LABS: Urine Bacteria None Seen /hpf (None Seen)
[2024-12-09] MEDS: ONDANSETRON HCL 4 MG/2 ML VIAL IV ONE (12:39)
[2024-12-09] MEDS: SODIUM CHLORIDE 0.9% 1,000 ML IV ONE (12:39)
[2024-12-09 12:50] LABS: Urine Blood Negative /uL (Negative); Urine Clarity Clear (Clear); Urine Color Yellow (Yellow); Urine Mucus FEW (None Seen); Urine Protein, UAD TRACE (Negative); Urine Specific Gravity 1.023 (1.001-1.035); Urine Squamous Epithelial Cell FEW /hpf (<5); Urine Urobilinogen Normal (Negative); Urine WBC 1 /HPF (0-3)
[2024-12-09] MEDS ORDERED: ZOFR4T PO (13:33)
--- NOTE | 2024-12-10 12:08 | ECG ---
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
== END 2024-12-09 14:16 | disposition home or self-care (01) ==
LOC: ER 10:23
DX: R11.2 Nausea with vomiting, unspecified (principal); B34.9 Viral infection, unspecified; I10 Essential (primary) hypertension; M10.9 Gout, unspecified; Z86.73 Personal history of transient ischemic attack (TIA), and cerebral infarction without residual deficits; Z79.899 Other long term (current) drug therapy
CPT/HCPCS: 36415; 71045; 80048; 81001; 83690; 83880; 84484; 85025; 93005; 96361; 96374; 99285; J2405; J7030

== ENCOUNTER 2025-02-18 23:07 | Emergency (ER) | payer MEDICAID ==
[~2025-02-18] VITALS: Ht 190.5 cm; Wt 160.8 kg
[~2025-02-18 23:07] MED LIST changes: +ZOFR4T PO
[2025-02-18 23:09] VITALS: BP 125/90; PULSE 84; RESP 20; TEMP 98.1
--- NOTE | 2025-02-19 01:02 | ED.PDOC ---
History of Present Illness(SKN HPI Comments 64-YEAR-OLD MALE PRESENTS TO THE ED WITH C/C OF LEFT FOOT PAIN, REDNESS AND SWELLING, DENIES ANY INJURY TO FOOT. DENIES FEVER, CHILLS, NAUSEA, VOMITING, CHEST PAIN, DIFFICULTY BREATHING, SHORTNESS OF BREATH, NUMBNESS OR WEAKNESS. Chief Complaint: Lower Extremity Time Seen by MD: 23:19 Primary Care Provider: BERNARDA History of Present Illness: Nurses Notes, Medications, Allergies Allergies: Coded Allergies: NO KNOWN ALLERGIES (Unverified , 11/13/12) Home Meds Active Scripts Colchicine (Colchicine) 0.6 Mg Cap, 0.6 MG PO ONCE for 2 Days, #6 CAP Take two capsules by mouth once, then in 1 hour repeat one capsule x 1. May repeat same dosing in three days if symptoms persist Prov:JEANNINE CRUZ 02/19/25 Indomethacin (Indomethacin) 50 Mg Cap, 1 CAP PO TID, #20 CAP 1 Refill as needed for gouty pain Prov:JEANNINE CRUZ 02/19/25 Methylprednisolone (Medrol Dosepak) 4 Mg Pilo, 4 MG PO UD, #21 TAB UAD Prov:JEANNINE CRUZ 02/19/25 Allopurinol (ZYLOPRIM TABLET) 100 Mg Tb, 1 TAB PO DAILY for 30 Days, #30 TAB 0 Refills Prov:ANTHONYJEANNINE 02/19/25 Ondansetron Odt 4MG Tab (ZOFRAN PO) 4 Mg Tb, 4 MG PO Q8HPRN PRN for 5 Days, #10 TAB ODT TAB-DISSOLVE IN MOUTH, THEN SWALLOW Prov:NAMRATA ADAMSON MD 12/09/24 Colchicine (Colchicine) 0.6 Mg Cap, 0.6 MG PO BID, #30 CAP Prov:ELEANOR CORTEZ 10/19/23 Famotidine (PEPCID TABLET) 20 Mg Tb, 1 TAB PO BID for 10 Days, #20 TAB 5 Refills Prov:NINOSKA REYNAGA WAITER/[employer]RESS [employer] CLASS 02/28/23 Hydrocodone-Acetaminophen (Hydrocodone Bitartrate/AC 5-325 mg) 1 Tab Tab, 1 TAB PO Q6HR, #12 TAB as needed for severe pain Prov:NINOSKA REYNAGA WAITER/WAITRESS [employer]IRD CLASS 02/28/23 Prednisone (Prednisone) 20 Mg Tab, 60 MG PO DAILY, #18 MG Prov:ELEANOR CORTEZ 05/22/22 Indomethacin (Indomethacin) 50 Mg Cap, 1 CAP PO TID PRN, #30 CAP 0 Refills Prov:TOSHA RITCHIE 04/21/22 Prednisolone Sodium Phosphate (Prednisolone Sodium Phosp) 30 Mg Tab, 30 MG PO DAILY, #3 TAB 0 Refills Prov:TOSHA RITCHIE 04/21/22 Acetaminophen (Tylenol 8 Hour Arthritis) 650 Mg Tab, 650 MG PO TID, #30 TAB Prov:ELEANOR CORTEZ 02/25/22 Clindamycin Hcl (Clindamycin Hcl) 300 Mg Cap, 300 MG PO QID for 7 Days, #28 CAP Prov:ELEANOR CORTEZ 02/25/22 Amoxicillin & Pot Clavulanate (Amoxicillin/Potassium Cla) 875 Mg Tab, 1 TAB PO BID for 7 Days, #14 TAB 0 Refills Prov:TOSHA RITCHIE 02/15/22 Acetaminophen (Acetaminophen) 500 Mg Tab, 500 MG PO QIDP, #30 TAB 0 Refills Prov:TOSHA RITCHIE 02/15/22 Colchicine (Colchicine) 0.6 Mg Cap, 0.6 MG PO TID, #20 CAP Prov:ELEANOR CORTEZ 02/05/22 Indomethacin (Indomethacin) 50 Mg Cap, 1 CAP PO TID, #30 CAP 1 Refill Prov:ELEANOR CORTEZ 02/05/22 Indomethacin (Indocin) 25 Mg Cp, 1 CAP PO BID, #28 CAP Prov:MARK SAHU MD 12/08/21 Reported Medications Fluoxetine Hcl (Fluoxetine Hcl) 20 Mg Cap, 20 MG PO, CAP 11/18/13 Gabapentin (Gabapentin) 300 Mg Cap, 300 MG PO, CAP 11/18/13 Allopurinol (Allopurinol) 300 Mg Tab, 300 MG PO, TAB 11/18/13 Indomethacin (Indomethacin) 50 Mg Cap, 50 MG PO, CAP 11/18/13 Ranitidine Hcl (Ranitidine Hcl) 150 Mg Cap, 150 MG PO, CAP 11/18/13 Simvastatin (Simvastatin) 20 Mg Tab, 20 MG PO DAILY for 30 Days 11/18/13 Enalapril Maleate (Enalapril Maleate) 2.5 Mg Tab, 10 MG PO DAILY for 30 Days, MG 11/18/13 [Fluoxetine Hcl20 Mg] (Fluoxetine Hcl) 20 MG CAP No Conflict Check, MG 11/13/12 [Bxzmnhkaxs333 Mg] (Gabapentin) 300 MG CAP No Conflict Check, MG 11/13/12 [Mbbfintcncm268 Mg] (Allopurinol) 300 MG TAB No Conflict Check, MG 11/13/12 [Ihhpeplnwiiu51 Mg] (Indomethacin) 50 MG CAP No Conflict Check, MG 11/13/12 [Ranitidine Vki648 M1] (Ranitidine Hcl) 150 MG TAB No Conflict Check, MG 11/13/12 [Eufvqeczgmp51 Mg] (Simvastatin) 20 MG TAB No Conflict Check, MG 11/13/12 [Enalapril Malea10 Mg] (Enalapril Maleate) 10 MG TAB No Conflict Check, MG 11/13/12 Mode of Arrival: Ambulatory Past Medical History PAST MEDICAL HISTORY: CVA, GERD, Gout, High Lipids, HTN Surgical History: Denies all surgeries Family History Family History: Reviewed,noncontributory to illness Social History Smoker: Non-Smoker Alcohol: Denies ETOH Use Drugs: Denies Drug Use Lives In: Home All Other Systems: Reviewed and Negative (SEE HPI) Physical Exam General Appearance: No Apparent Distress, Normal HEENT: Normal ENT Inspection, Pharynx Normal, TMs Normal Neck: Full Range of Motion, Non-Tender, Normal, Normal Inspection Respiratory: Chest Non-Tender, Lungs Clear, No Accessory Muscle Use, No Respiratory Distress, Normal Breath Sounds Cardiovascular: No Edema, No JVD, No Murmur, No Gallop, Normal Peripheral Pulses, Regular Rate/Rhythm Breast Exam: Deferred Gastrointestinal: No Organomegaly, Non Tender, No Pulsatile Mass, Normal Bowel Sounds, Soft Genitalia: Deferred Pelvic: Deferred Rectal: Deferred Extremities: Inflammation (LEFT FOOT MEDIAL ASPECT MODERATE TENDERNESS WITH ERYTHEMA NO NOTED OPEN LESIONS OR DRAINAGE POSITIVE PEDAL PULSES STRENGTH SENSOR Y MOTION INTACT), No calf tenderness, Normal capillary refill, Normal range of motion, Pedal edema (1+ PITTING EDEMA LEFT FOOT AND ANKLE) Musculoskeletal : Apperance: Normal Neurologic: Alert, oxygen therapy technician II-XII nml as Tested, No Motor Deficits, Normal Affect, Normal Mood, No Sensory Deficits Cerebellar Function: Normal Reflexes: Normal Skin: Dry, Normal Color, Warm Lymphatic: No Adenopathy Was a procedure done? Was a procedure done?: No Differential Diagnosis (INTG) Differential Diagnosis: Cellulitis, Hematoma, Puncture Wound Differential Diagnosis: Abscess, Cellulitis X-Ray, Labs, Meds, VS Vital Signs Date Time Temp Pulse Resp B/P (MAP) Pulse Ox O2 Delivery O2 Flow Rate FiO2 02/18/25 23:09 98.1 84 20 125/90 96 98.1 Lab Test 02/19/25 01:24 Range/Units White Blood Count 10.7 4.4-10.8 10^3/uL Red Blood Count 5.19 4.5-5.90 10^6/uL Hemoglobin 15.7 13.5-17.5 g/dL Hematocrit 46.6 41.0-53.0 % Mean Corpuscular Volume 89.7 80.0-100.0 fL Mean Corpuscular Hemoglobin 30.3 28.0-32.0 pg Mean Corpuscular Hemoglobin Concent 33.8 32.0-36.0 g/dL Red Cell Distribution Width 14.3 11.8-14.3 % Platelet Count 176 140-450 10^3/uL Mean Platelet Volume 9.6 6.9-10.8 fL Neutrophils (%) (Auto) 72.8 37.0-80.0 % Lymphocytes (%) (Auto) 12.9 10.0-50.0 % Monocytes (%) (Auto) 10.7 0.0-12.0 % Eosinophils (%) (Auto) 2.8 0.0-7.0 % Basophils (%) (Auto) 0.8 0.0-2.0 % Neutrophils # (Auto) 7.8 1.6-8.6 10 ^3/uL Lymphocytes # (Auto) 1.4 0.4-5.4 10 ^3/uL Monocytes # (Auto) 1.1 0-1.3 10 ^3/uL Eosinophils # (Auto) 0.3 0-0.8 10 ^3/uL Basophils # (Auto) 0.1 0-0.2 10 ^3/uL Nucleated Red Blood Cells 0.1 % Sodium Level 142 136-145 mmol/L Potassium Level 4.5 3.5-5.1 mmol/L Chloride Level 105 98-107 mmol/L Carbon Dioxide Level 29 20-31 mmol/L Anion Gap 8 5-15 Blood Urea Nitrogen 8 L 9-23 mg/dL Creatinine 1.15 0.700-1.30 mg/dL Glomerular Filtration Rate Calc 72 >90 mL/min BUN/Creatinine Ratio 7.0 L 10.0-20.0 Serum Glucose 92 74-106 mg/dL Calcium Level 9.5 8.7-10.4 mg/dL Total Bilirubin 0.2 0.2-1.0 mg/dL Aspartate Amino Transferase (AST) 28 13-40 U/L Alanine Aminotransferase (ALT) 25 7-40 U/L Alkaline Phosphatase 92 46-116 U/L Total Protein 7.1 5.7-8.2 g/dL Albumin 4.4 3.2-4.8 g/dL Current Medications Medications (Trade) Dose Ordered Sig/Tip Route Start Time Stop Time Status Last Admin Ketorolac Tromethamine (Toradol Injection) 60 mg ONCE ONCE IM 02/19/25 01:45 02/19/25 01:46 DC 02/19/25 01:59 Dexamethasone Sodium Phosphate (Decadron Injection) 10 mg ONCE ONCE IM 02/19/25 01:45 02/19/25 01:46 DC 02/19/25 01:59 X-Ray, Labs, Meds, VS Comment IMAGING: Left Foot FINDINGS/IMPRESSION: : There is no evidence of acute fracture or dislocation. Erosive change at the articular margin of the distal 1st metatarsal may represent sequelae of gout arthritis. Mild hallux valgus. Plantar and retrocalcaneal enthesopathy. Moderate soft tissue swelling medially adjacent to the 1st metatarsal phalangeal joint. LAB WORK: CBC without leukocytosis, CMP within normal limits PLAN: Gout flare-up. Patient given Toradol 60 mg IM and Decadron 10 mg IM reports improvement in pain requesting discharge this time. Script trial of colchicine, indomethacin, Medrol Dosepak, and allopurinol. Advised to take medications as prescribed side effects discussed. Patient states has not appointment with his primary care provider today around 10:00 a.m.. Advised on ER return precautions patient indicates understanding and agrees with discharge plan of care Time of 1ST Reevaluation: 00:45 Reevaluation 1ST: Unchanged Time of 2ND Reevaluation: 02:43 Reevaluation 2ND: Improved Patient Education/Counseling: Diagnosis, Treatment, Prognosis, Need For Follow Up Family Education/Counseling: No Family Present SEPSIS Sepsis Screen Date sepsis recognized/suspect: Feb 18, 2025 Time Sepsis recognized/suspect: 2314 Recent Procedure: No On Antibiotic Therapy: No Respiratory Rate >20: No Heart Rate >90: No Temp<36 C (96.8 F) or >38.3 C: No SBP <90 or MAP <65 mmHG: No New Acute Mental Status Change: No Is the patient on CPAP, BIPAP,: No Physician Orders L Foot 3 View Xray (02/19/25 01:02) Vital Signs Date Time Temp Pulse Resp B/P (MAP) Pulse Ox O2 Delivery O2 Flow Rate FiO2 02/18/25 23:09 98.1 84 20 125/90 96 98.1 Laboratory Tests Test 02/19/25 01:24 White Blood Count 10.7 10^3/uL (4.4-10.8) Medications Medications Dose Ordered Sig/Tip Route Start Time Stop Time Status Last Admin Dose Admin Dexamethasone Sodium Phosphate 10 mg ONCE ONCE IM 02/19/25 01:45 02/19/25 01:46 DC 02/19/25 01:59 Ketorolac Tromethamine 60 mg ONCE ONCE IM 02/19/25 01:45 02/19/25 01:46 DC 02/19/25 01:59 Departure 1 Departure Time of Disposition: 02:43 Impression: Primary Impression: Acute gout of left foot Qualified Codes: M10.9 - Gout, unspecified Disposition: 01 HOME / SELF CARE / HOMELESS Condition: Stable e-Prescriptions Colchicine (Colchicine) 0.6 Mg Cap 0.6 MG PO ONCE for 2 Days, #6 CAP Take two capsules by mouth once, then in 1 hour repeat one capsule x 1. May repeat same dosing in three days if symptoms persist Prov: JEANNINE CRUZ 02/19/25 Indomethacin (Indomethacin) 50 Mg Cap 1 CAP PO TID, #20 CAP 1 Refill as needed for gouty pain Prov: JEANNINE CRUZ 02/19/25 Methylprednisolone (Medrol Dosepak) 4 Mg Pilo 4 MG PO UD, #21 TAB UAD Prov: JEANNINE CRUZ 02/19/25 Allopurinol (ZYLOPRIM TABLET) 100 Mg Tb 1 TAB PO DAILY for 30 Days, #30 TAB 0 Refills Prov: JEANNINE CRUZ 02/19/25 Discharged With: Self Critical Care Note Critical Care Time?: No Stability Stability form required: JEANNINE Betancourt Feb 19, 2025 01:02
--- NOTE | 2025-02-19 01:56 | DVH ---
CLINICAL INDICATION: MEDIAL FOOT SWELLING AND PAIN TECHNIQUE: XY L FOOT 3 VIEW XRAY Comparison: XY L KNEE 3V XRAY on DOS: 02/28/23, L FOOT COMPLETE XRAY on DOS: 08/02/21 FINDINGS/IMPRESSION: : There is no evidence of acute fracture or dislocation. Erosive change at the articular margin of the distal 1st metatarsal may represent sequelae of gout ar thritis. Mild hallux valgus. Plantar and retrocalcaneal enthesopathy. Moderate soft tissue swelling medially adjacent to the 1st metatarsal phalangeal joint.
[2025-02-19] MEDS: KETOROLAC TROMETH 60MG/2ML VIAL IM ONE (01:59)
[2025-02-19 02:05] VITALS: O2SAT 94
[2025-02-19 02:06] LABS: Hematocrit 46.6 % (41.0-53.0); Hemoglobin 15.7 g/dL (13.5-17.5); Mean Corpuscular Hemoglobin 30.3 pg (28.0-32.0); Mean Corpuscular Volume 89.7 fL (80.0-100.0); Nucleated Red Blood Cells % 0.1 %
[2025-02-19 02:31] LABS: Alanine Aminotransferase 25 U/L (7-40); Albumin 4.4 g/dL (3.2-4.8); Alkaline Phosphatase 92 U/L (46-116); Anion Gap 8 (5-15); BUN/Creatinine Ratio 7.0 (10.0-20.0); Calcium 9.5 mg/dL (8.7-10.4); Carbon Dioxide 29 mmol/L (20-31); Chloride 105 mmol/L (98-107); Glucose 92 mg/dL (74-106); Potassium 4.5 mmol/L (3.5-5.1); Sodium 142 mmol/L (136-145); Total Protein 7.1 g/dL (5.7-8.2)
[2025-02-19 02:33] LABS: Bilirubin, Total 0.2 mg/dL (0.2-1.0); Blood Urea Nitrogen 8 mg/dL (9-23)
[2025-02-19] MEDS ORDERED: ALL100T PO (02:48)
[2025-02-19] MEDS ORDERED: INDO50CA82 PO (02:48)
[2025-02-19] MEDS ORDERED: COLC1CAP PO (02:48)
[2025-02-19] MEDS ORDERED: METH4PAK PO (02:48)
== END 2025-02-19 02:59 | disposition home or self-care (01) ==
LOC: ER 23:07
DX: M10.9 Gout, unspecified (principal); I10 Essential (primary) hypertension; E78.5 Hyperlipidemia, unspecified; Z86.73 Personal history of transient ischemic attack (TIA), and cerebral infarction without residual deficits; Z79.899 Other long term (current) drug therapy; Z79.52 Long term (current) use of systemic steroids
CPT/HCPCS: 36415; 73630; 80053; 85025; 96372; 99284; J1100; J1885

== ENCOUNTER 2025-05-14 08:18 | Emergency (ER) | payer MEDICAID ==
[~2025-05-14] VITALS: Ht 190.5 cm; Wt 162.2 kg
--- NOTE | 2025-05-14 08:51 | ED.PDOC ---
Musculoskeletal HPI Comments 64-year-old male with PMHx gout, CVA, GERD, HLD, HTN who presents in the ED with a chief complaint of RT knee pain onset 2 days. Patient is currently experiencing RT knee swelling as well as LT elbow swelling and pain for the past 2 days. Patient has been taking Prednisone with no improvement of symptoms. Has visited this ED multiple times for similar complaints. Denies injury, fall, trauma, fever, chills, nausea /vomiting, dizziness, headache, chest pain, shortness a breath. No other symptoms or modifying factors present at this time. Chief Complaint: Lower Extremity Time Seen by MD: 08:45 Primary Care Provider: BERNARDA Reviewed Notes: Medications, Allergies Allergies: Coded Allergies: NO KNOWN ALLERGIES (Unverified , 11/13/12) Home Meds Active Scripts Indomethacin (Indomethacin) 50 Mg Cap, 1 CAP PO TID, #20 CAP 1 Refill as needed for gouty pain Prov:JEANNINE CRUZ WICKER WORKER 02/19/25 Methylprednisolone (Medrol Dosepak) 4 Mg Pilo, 4 MG PO UD, #21 TAB UAD Prov:JEANNINE CRUZ WICKER WORKER 02/19/25 Allopurinol (ZYLOPRIM TABLET) 100 Mg Tb, 1 TAB PO DAILY for 30 Days, #30 TAB 0 Refills Prov:JEANNINE CRUZ WICKER WORKER 02/19/25 Ondansetron Odt 4MG Tab (ZOFRAN PO) 4 Mg Tb, 4 MG PO Q8HPRN PRN for 5 Days, #10 TAB ODT TAB-DISSOLVE IN MOUTH, THEN SWALLOW Prov:NAMRATA ADAMSON MD 12/09/24 Colchicine (Colchicine) 0.6 Mg Cap, 0.6 MG PO BID, #30 CAP Prov:ELEANOR CORTEZ 10/19/23 Famotidine (PEPCID TABLET) 20 Mg Tb, 1 TAB PO BID for 10 Days, #20 TAB 5 Refills Prov:NINOSKA REYNAGA SPINE SPECIALIST 02/28/23 Hydrocodone-Acetaminophen (Hydrocodone Bitartrate/AC 5-325 mg) 1 Tab Tab, 1 TAB PO Q6HR, #12 TAB as needed for severe pain Prov:NATE REYNAGAALDA Q SPINE SPECIALIST 02/28/23 Prednisone (Prednisone) 20 Mg Tab, 60 MG PO DAILY, #18 MG Prov:ELEANOR CORTEZ 05/22/22 Indomethacin (Indomethacin) 50 Mg Cap, 1 CAP PO TID PRN, #30 CAP 0 Refills Prov:TOSHA RITCHIE 04/21/22 Prednisolone Sodium Phosphate (Prednisolone Sodium Phosp) 30 Mg Tab, 30 MG PO DAILY, #3 TAB 0 Refills Prov:TOSHA RITCHIE 04/21/22 Acetaminophen (Tylenol 8 Hour Arthritis) 650 Mg Tab, 650 MG PO TID, #30 TAB Prov:ELEANOR CORTEZ 02/25/22 Clindamycin Hcl (Clindamycin Hcl) 300 Mg Cap, 300 MG PO QID for 7 Days, #28 CAP Prov:ELEANOR CORTEZ 02/25/22 Amoxicillin & Pot Clavulanate (Amoxicillin/Potassium Cla) 875 Mg Tab, 1 TAB PO BID for 7 Days, #14 TAB 0 Refills Prov:TOSHA RITCHIE 02/15/22 Acetaminophen (Acetaminophen) 500 Mg Tab, 500 MG PO QIDP, #30 TAB 0 Refills Prov:TOSHA RITCHIE 02/15/22 Colchicine (Colchicine) 0.6 Mg Cap, 0.6 MG PO TID, #20 CAP Prov:ELEANOR CORTEZ 02/05/22 Indomethacin (Indomethacin) 50 Mg Cap, 1 CAP PO TID, #30 CAP 1 Refill Prov:ELEANOR CORTEZ 02/05/22 Indomethacin (Indocin) 25 Mg Cp, 1 CAP PO BID, #28 CAP Prov:MARK SAHU MD 12/08/21 Reported Medications Fluoxetine Hcl (Fluoxetine Hcl) 20 Mg Cap, 20 MG PO, CAP 11/18/13 Gabapentin (Gabapentin) 300 Mg Cap, 300 MG PO, CAP 11/18/13 Allopurinol (Allopurinol) 300 Mg Tab, 300 MG PO, TAB 11/18/13 Indomethacin (Indomethacin) 50 Mg Cap, 50 MG PO, CAP 11/18/13 Ranitidine Hcl (Ranitidine Hcl) 150 Mg Cap, 150 MG PO, CAP 11/18/13 Simvastatin (Simvastatin) 20 Mg Tab, 20 MG PO DAILY for 30 Days 11/18/13 Enalapril Maleate (Enalapril Maleate) 2.5 Mg Tab, 10 MG PO DAILY for 30 Days, MG 11/18/13 [Fluoxetine Hcl20 Mg] (Fluoxetine Hcl) 20 MG CAP No Conflict Check, MG 11/13/12 [Efxqizgobm045 Mg] (Gabapentin) 300 MG CAP No Conflict Check, MG 11/13/12 [Vqkoybrqees600 Mg] (Allopurinol) 300 MG TAB No Conflict Check, MG 11/13/12 [Bbhydosxdhlt77 Mg] (Indomethacin) 50 MG CAP No Conflict Check, MG 11/13/12 [Ranitidine Amb978 M1] (Ranitidine Hcl) 150 MG TAB No Conflict Check, MG 11/13/12 [Lyolgjblkgq06 Mg] (Simvastatin) 20 MG TAB No Conflict Check, MG 11/13/12 [Enalapril Malea10 Mg] (Enalapril Maleate) 10 MG TAB No Conflict Check, MG 11/13/12 Information Source: Patient Mode of Arrival: Ambulatory Location: Right Extremity Location: Knee Timing: Days Prehospital treatment: Other (prednisone) Severity: Moderate Able to Move Extremity: Yes Bear Weight: Limited Pain: Moderate Associated signs and symptoms: Swelling Past Medical History PAST MEDICAL HISTORY: CVA, GERD, Gout, High Lipids, HTN Surgical History: Denies all surgeries Family History Family History: Reviewed,noncontributory to illness Social History Smoker: Non-Smoker Alcohol: Denies ETOH Use Drugs: Denies Drug Use Lives In: Home Constitutional: denies: chills, diaphoresis, fatigue, fever, malaise, sweats, weakness, others EENTM: denies: blurred vision, double vision, ear bleeding, ear discharge, ear drainage, ear pain, ear ringing, eye pain, eye redness, hearing loss, mouth pain, mouth swelling, nasal discharge, nose bleeding, nose congestion, nose pain, photophobia, tearing, throat pain, throat swelling, voice changes, others Respiratory: denies: cough, hemoptysis, orthopnea, SOB at rest, shortness of breath, SOB with excertion, stridor, wheezing, others Cardiovascular: denies: chest pain, dizzy spells, diaphoresis, Dyspnea on exertion, edema, irregular heart beat, left arm pain, lightheadedness, palpitations, PND, syncope, others Gastrointestinal: denies: abdomen distended, abdominal pain, blood streaked bowels, constipated, diarrhea, dysphagia, difficulty swallowing, hematemesis, melena, nausea, poor appetite, poor fluid intake, rectal bleeding, rectal pain, vomiting, others Genitourinary: denies: burning, dysuria, flank pain, frequency, hematuria, incontinence, penile discharge, penile sore, pain, testicle pain, testicle swelling, urgency, others Neurological: denies: dizziness, fainting, headache, left sided numbness, left sided weakness, numbness, paresthesia, pre-existing deficit, right sided numbness, right sided weakness, seizure, speech problems, tingling, tremors, weakness, others Musculoskeletal: reports: others (RT knee, LT elbow swelling and pain); denies: back pain, gout, joint pain, joint swelling, muscle pain, muscle stiffness, neck pain Integumetry: denies: bruises, change in color, change in hair/nails, dryness, laceration, lesions, lumps, rash, wounds, others Allergic/Immunocompromised: denies: Difficulty Healing, Frequent Infections, Hives, Itching, others Hematologic/Lymphatic: denies: anemia, blood clots, easy bleeding, easy bruisi ng, swollen glands, others Endocrine: denies: excessive hunger, excessive sweating, excessive thirst, exce ssive urination, flushing, intolerance to cold, intolerance to heat, unexplained weight gain, unexplained weight loss, others Psychiatric: denies: anxiety, bipolar disorder, depression, hopeless, panic disorder, schizophrenia, sleepless, suicidal, others All Other Systems: Reviewed and Negative Physical Exam General Appearance: Moderate Distress, Normal HEENT: Normal ENT Inspection, Pharynx Normal, TMs Normal Neck: Full Range of Motion, Non-Tender, Normal, Normal Inspection Respiratory: Chest Non-Tender, Lungs Clear, No Accessory Muscle Use, No Respiratory Distress, Normal Breath Sounds Cardiovascular: No Edema, No JVD, No Murmur, No Gallop, Normal Peripheral Pulses, Regular Rate/Rhythm Breast Exam: Deferred Gastrointestinal: No Organomegaly, Non Tender, No Pulsatile Mass, Normal Bowel Sounds, Soft Genitalia: Deferred Pelvic: Deferred Rectal: Deferred Extremities: No calf tenderness, Normal capillary refill, Normal inspection, Normal range of motion, Non-tender, No pedal edema Musculoskeletal : Apperance: Normal Neurologic: Alert, anesthesiology physician II-XII nml as Tested, No Motor Deficits, Normal Affect, Normal Mood, No Sensory Deficits Cerebellar Function: Normal Reflexes: Normal Skin: Dry, Normal Color, Warm Peripheral Pulses: 3+ Radial (R), 3+ Radial (L) Lymphatic: No Adenopathy Was a procedure done? Was a procedure done?: No EKG EKG : Pulse Rate (adult): 116 Cardiac Rhythm: ST Differential Diagnosis EXT Differential Diagnosis: Sprain, Strain X-Ray, Labs, Meds, VS Vital Signs Date Time Temp Pulse Resp B/P (MAP) Pulse Ox O2 Delivery O2 Flow Rate FiO2 05/14/25 09:54 77 20 176/103 05/14/25 09:45 97.9 73 16 176/103 (127) 94 97.9 05/14/25 08:51 116 05/14/25 08:20 97.6 86 18 161/102 96 97.6 Current Medications Medications (Trade) Dose Ordered Sig/Tip Route Start Time Stop Time Status Last Admin Methylprednisolone Sodium Succinate (Solu Medrol) 125 mg ONCE ONCE IM 05/14/25 09:00 05/14/25 09:01 DC 05/14/25 09:54 Hydromorphone HCl (Dilaudid Injection) 1 mg ONCE ONCE IM 05/14/25 09:00 05/14/25 09:01 DC 05/14/25 09:54 Ondansetron HCl (Zofran) 4 mg ONCE ONCE IM 05/14/25 09:00 05/14/25 09:01 DC 05/14/25 09:54 Patient alert. No sign of distress. Was given steroid. Was given pain medication. Vitals stable. Answering questions. Blood pressure elevated. Explained to the patient. Continue monitoring. Time of 1ST Reevaluation: 09:15 Reevaluation 1ST: Unchanged Patient Education/Counseling: Diagnosis, Treatment, Prognosis Family Education/Counseling: No Family Present Departure 1 Departure Time of Disposition: 17:47 Impression: Primary Impression: Hypertensive urgency Disposition: ADMITTED INPATIENT Admit to: Med Surg Condition: Guarded Critical Care Note Critical Care Time?: No Stability Stability form required: No Heart Score Heart Score: Heart Score Response (Comments) Value History N/A 0 EKG N/A 0 Age N/A 0 Risk Factors N/A 0 Troponin N/A 0 Total 0 I personally scribed for JUAN MIGUEL ONEILL MD ([email or web address]) on 05/14/25 at 08:51. Electronically submitted by Zainab Gant ([email or web address]). I personally scribed for JUAN MIGUEL ONEILL MD ([email or web address]) on 05/14/25 at 08:51. Electronically submitted by Zainab Gant ([email or web address]). JUAN MIGUEL ONEILL MD May 14, 2025 08:51
[2025-05-14 09:45] VITALS: TEMP 97.9; O2SAT 94
[2025-05-14 09:54] VITALS: BP 176/103; PULSE 77; RESP 20
[2025-05-14] MEDS: methylPREDNISolone SOD SUCC 125 MG/2 ML VL IM ONE (09:54)
[2025-05-14] MEDS: ONDANSETRON HCL 4 MG/2 ML VIAL IM ONE (09:54)
[2025-05-14] MEDS: HYDROmorphone HCL 2 MG/ML VL/or syr IM ONE (09:54)
== END 2025-05-14 10:16 | disposition home or self-care (01) ==
LOC: ER 08:22
DX: I16.0 Hypertensive urgency (principal); I10 Essential (primary) hypertension; E78.5 Hyperlipidemia, unspecified; M10.9 Gout, unspecified; K21.9 Gastro-esophageal reflux disease without esophagitis; Z79.899 Other long term (current) drug therapy; Z86.73 Personal history of transient ischemic attack (TIA), and cerebral infarction without residual deficits; Z79.52 Long term (current) use of systemic steroids
CPT/HCPCS: 96372; 99284; J1171; J2405; J2919

== ENCOUNTER 2025-06-06 00:27 | Emergency (ER) | payer MEDICAID ==
[~2025-06-06] VITALS: Ht 190.5 cm; Wt 160.0 kg
[2025-06-06 00:32] VITALS: BP 159/79; PULSE 89; RESP 18; TEMP 97.8; O2SAT 95
== END 2025-06-06 04:53 | disposition left against medical advice (07) ==
LOC: ER 00:27
DX: M79.672 Pain in left foot (principal); Z53.21 Procedure and treatment not carried out due to patient leaving prior to being seen by health care provider